=== PATIENT | female | born 1940 | race Caucasian/White ===

== ENCOUNTER 2017-01-03 13:54 | Inpatient (IN) | payer MEDICARE ==
[~2017-01-03] VITALS: Ht 149.9 cm; Wt 72.6 kg
[~2017-01-03 13:54] MED LIST: ACET325T51 PO; AMLO10TA5 PO; ASPI-973 PO; CEPH-512 PO; FENO160T14 PO; GEMF600T3 PO; GLIP10TA10 PO; HYDR50TA3 PO; INSU100I25 SQ; LEVO112T4 PO; LISI40TA PO; METF500T4 PO; METO25TA6 PO; NORT10CA PO; OMEP40CA36 PO; POTA10TA19 PO; PRAV20TA2 PO; PRE20 PO
[2017-01-03 13:59] VITALS: BP 159/82; PULSE 90; RESP 18; O2SAT 98
--- NOTE | 2017-01-03 15:12 | ED.REPORT ---
HPI-Neurologic Deficit Date of Service Jan 03, 2017 ED Provider: Frank Guillermo MD Pt is a 76 y/o female w/ a hx of IDDM, HTN, HLD, presenting to the ED with her daughter due to multiple neurological symptoms onset at the most 4 days ago. She has been experiencing facial droop, R leg weakness and mild numbness, difficulty walking, slurred speech, mild confusion. The onset of these symptoms is generally unclear but estimated about 2-4 days ago. The patient's chief complaint is difficulty walking secondary to RLE weakness. The daughter noticed the rest of the symptoms and brought her in today. She has no history of stroke. She takes aspirin daily but no anticoagulants. Nursing Notes Stated Complaint: DROOPY FACE,HARD TIME WALKING,SLURRING WORDS Chief Complaint: Neuro Symptoms/ Deficits Nursing Notes Reviewed: Yes Allergies: Coded Allergies: Penicillins (Verified Allergy, Severe, Anaphylaxis, 01/03/17) Heparin Analogues (Verified Adverse Reaction, Intermediate, BURNING VEINS FROM IV, SUBQ IS OK, 01/03/17) BURNING VEINS FROM IV HEPARIN--SUB Q HEPARIN OK levofloxacin (Verified Adverse Reaction, Intermediate, INSTANT MIGRAINE, NIGHTMARES, 01/03/17) niacin (Verified Adverse Reaction, Intermediate, FLUSHING, NAUSEA, DIARRHEA, 01/03/17) Scheduled Acetaminophen (Acetaminophen) 500 Mg Tablet 1,000 MG PO BID Amlodipine (Norvasc) 10 Mg Tablet 10 MG PO QAM Aspirin (Aspirin) 81 Mg Tablet 81 MG PO QAM Gemfibrozil (Gemfibrozil) 600 Mg Tablet 600 MG PO QAM Insulin Detemir (Levemir U100 Insulin Vial) 100 Unit/1 Ml Vial 18 UNIT SUBQ BID Levothyroxine (Levothyroxine) 112 Mcg Tablet 112 MCG PO QAM Lisinopril (Lisinopril) 40 Mg Tablet 60 MG PO QAM Metformin (Metformin) 500 Mg Tablet 500 MG PO EVERY OTHER DAY (PM) Metformin (Metformin) 500 Mg Tablet 500 MG PO QAM Metoprolol Tartrate (Metoprolol Tartrate) 25 Mg Tablet 12.5 MG PO BID Nortriptyline (Nortriptyline) 10 Mg Capsule 20 MG PO HS Omeprazole (Omeprazole) 20 Mg Capsule.dr 20 MG PO BIDWM Pravastatin (Pravastatin) 20 Mg Tablet 20 MG PO HS Triamterene/HCTZ 37.5-25 mg (Triamterene/HCTZ 37.5-25 mg) 1 Each Tablet 1 TABLET PO QAM General Time Seen by Provider: 15:15 Chief Complaint Other (multiple) Hx Obtained From: Patient Arrived By: Walk-in Sudden in Onset?: No Onset Occurred: 4 days ago Symptom Duration: Since onset Progression Since Onset: Constant Severity: Current: No pain currently Severity: Maximum: No pain Similar Sx Previous: No Risk Factors NIH Stroke Scale Level of Consciousness: Alert and responsive (0) Ask Month & Age: Both questions right (0) Open/Close Eyes/Hand Power Bender Operator: Performs both tasks (0) Horizontal EO Movements: None (0) Visual Barraza: No visual loss (0) Facial Palsy: Minor paralysis (1) (R) Right Arm Motor Drift (10s): Drift, not touch bed (1) Left Arm Motor Drift (10s): No drift 10 sec (0) Right Leg Motor Drift (5s): No drift 5 sec (0) Left Leg Motor Drift (5s): No drift 5 sec (0) Limb Ataxia FNF/Heel-Hazel: No ataxia (0) Sensation (Arms/Legs/Face): Pinprick less sharp (1) (RUE and RLE) Language Aphasia: No aphasia, normal (0) Dysarthria: Slurring intelligible (1) Extinction/Inattention: No exctinct/inattent (0) NIHSS Score: 4 Time NIHSS Performed: 15:15 Date NIHSS Performed: Jan 03, 2017 Past Medical History Past Medical History 1. Hypertension 2. Diabetes type 2. 3. Gastroesophageal reflux disease. 4. Hypothyroidism. 5. Dyslipidemia. 6. History of post ureteral stent complications with iliopsoas abscess and small-bowel obstruction, resolved with antibiotics. 7. History of hormone replacement therapy. 8. History of left-sided ureteral stones. 9. Arthritis of the neck, right shoulder, left shoulder and coccyx. 10. History of chronic calculus cholecystitis status post laparoscopic cholecystectomy and cholangiograms. 11. History of rectocele, vault prolapse, status post prior hysterectomy and prior anterior vaginal repair status post posterior Elevate system with posterior vaginal graft repair with apical vaginal repair and prophylactic mini-ARC urethropexy. Reports: Migraines Past Surgical History Hysterectomy. Cholecystectomy. Kidney stones removal, stenting. History of left knee surgery. Smoking History Never Smoker Social History Alcohol Use: Denies alcohol use Other Social History: Local resident Ambulatory Status Independent Review of Systems Neurologic: Reports: Confusion, Focal weakness, Numbness, Problem walking, Slurred speech, Denies: Change LOC, Headache, Unable to speak Complete sys rev & neg: except as marked. Physical Exam Initial Vital Signs Vital Signs (First) Date Time Temp Pulse Resp B/P Pulse Ox O2 Delivery O2 Flow Rate FiO2 01/03/17 13:59 36.5 90 18 159/82 98 Initial VS: Reviewed, Vital signs abnormal ENT: Mucous membranes moist, Conjunctiva normal, No scleral icterus Neck: Supple, Full range of motion Abdomen / GI: Soft, Non-tender Extremities: Vascular intact, No swelling Skin: Warm, Dry Psychiatric: Mood/affect normal, Behavior normal General/Constitutional: Awake, Alert, No acute distress, Cooperative, Not toxic appearing Head / Eyes: Atraumatic, Normocephalic, PERRL, EOMI Respiratory / Chest: Breath sounds NL, Breath sounds = bilat, No respiratory distress, No rales, No rhonchi, No wheezing Cardiovascular: Heart rate NL, Regular rhythm, Heart sounds NL, No murmurs Neurologic: Oriented X3, Cerebellar NL, Memory NL See NIH stroke scale = 4 Interpretation & Diagnostics Lab Results Interpretation Result Diagram: 01/03/17 1555 01/03/17 1555 Test 01/03/17 15:55 01/03/17 16:35 White Blood Count 5.4th/mm3 (3.8-10.1) Red Blood Count 4.14mil/mm3 (3.90-5.20) Hemoglobin 12.9g/dL (12.0-15.6) Hematocrit 36.1% (35.0-46.0) Mean Corpuscular Volume 87.2fL (81-100) Mean Corpuscular Hemoglobin 31.2pg (27.0-35.0) Mean Corpuscular Hemoglobin Concent 35.7% (32.0-37.0) Red Cell Distribution Width 12.6% (12.3-15.4) Platelet Count 320bil/L (150-400) Neutrophils (%) (Auto) 57.7% (40-74) Lymphocytes (%) (Auto) 31.0% (14-46) Monocytes (%) (Auto) 7.2% (4-12) Eosinophils (%) (Auto) 3.3% (0-5) Basophils (%) (Auto) 0.6% (0-3) Prothrombin Time 10.2sec (8.1-12.5) Prothromb Time International Ratio 0.95ratio Sodium Level 133mEq/L (134-144) Potassium Level 4.9mEq/L (3.5-5.2) Chloride Level 98mEq/L (97-108) Carbon Dioxide Level 17mmol/L (18-29) Blood Urea Nitrogen 39mg/dL (8-27) Creatinine 1.16mg/dL (0.57-1.00) Estimat Glomerular Filtration Rate 65mL/min (>59) Glucose Level 257mg/dL (60-99) Calcium Level 9.9mg/dL (8.5-10.1) Magnesium Level 1.5mg/dL (1.6-2.6) Total Bilirubin 0.2mg/dL (0.0-1.2) Aspartate Amino Transf (AST/SGOT) 37U/L (0-50) Alanine Aminotransferase (ALT/SGPT) 28U/L (0-32) Alkaline Phosphatase 77U/L (25-165) Troponin T < 0.010ug/L (0.0-0.011) Pro-B-Type Natriuretic Peptide 31.99pg/mL (0-738) Total Protein 7.7g/dL (6.4-8.4) Albumin 4.4g/dL (3.4-5.0) Hold Mccullough Top Tube Received (Received) Urine Color Yellow (YELLOW) Urine Appearance Hazy (CLEAR,HAZY) Urine pH 5.5 (5.0-8.0) Urine Specific [place] 1.020 (1.003-1.035) Urine Protein 100mg/dL (NEG,TRACE) Urine Glucose (UA) >1000mg/dL (NEGATIVE) Urine Ketones Negativemg/dL (NEGATIVE) Urine Occult Blood Negative (NEGATIVE) Urine Nitrite Negative (NEGATIVE) Urine Bilirubin Negative (NEGATIVE) Urine Urobilinogen Normalmg/dL (NORMAL) Urine Leukocyte Esterase Negative (NEGATIVE) Urine RBC 0-2/hpf (0-2) Urine WBC 0-5/hpf (0-5) Urine Epithelial Cells Many/hpf (NONE-MOD) Urine Crystals None seen (NONE SEEN) Urine Bacteria Few/hpf (NONE-FEW) Urine Hyaline Casts None/lpf (NONE) Urine Granular Casts None seen (NONE SEEN) Urine Waxy Casts None seen (NONE SEEN) Urine Red Blood Cell Casts None seen (NONE SEEN) Urine White Blood Cell Casts None seen (NONE SEEN) Urine Mucus None seen (None Seen) Urine Trichomonas None seen (NONE SEEN) Urine Yeast None (NONE SEEN) Urinalysis Comment None Urine Culture Reflexed Not indicated Hold Urine Received (Received) ECG Interpretation Time: 15:30 Interpreted by: ED physician Normal ECG Interpretation: Normal ECG w/ rate of... (82), Normal rate, Normal sinus rhythm, No acute ischemic changes, Normal QRS, Normal axis, Normal intervals, Adequate tracing X-Ray Chest Interpretation Chest Xray Interpretation: IMPRESSION: A source of acute shortness of breath is not found. Dictated by: Lamont Vera M.D. on 01/03/2017 at 16:52 Approved by: Lamont Vera M.D. on 01/03/2017 at 16:53 View: Portable, 1 view Interpretation / Wet Read by: Interpret - Radiologist CT Head Interpretation IMPRESSION: Mild microvascular atherosclerotic change in the deep white matter of each hemisphere, as was previously the case in 2015. No definite acute disease is found. Dictated by: Lamont Vera M.D. on 01/03/2017 at 16:06 Approved by: Lamont Vera M.D. on 01/03/2017 at 16:07 Study: Head CT no contrast Interpretation / Wet Read by: Interpret - Radiologist Re-Eval/Medical Decision Med Decision/Clinical Course 76-year-old female with 2-4 days of right facial droop right upper extremity weakness recollection of any weakness and dysarthria. While out of the TPA window. CT brain no acute pathology. On exam she does have right lower facial droop, dysarthria, right upper extremity drift decreased sensation right upper and lower extremity. Labs are unremarkable. Patient likely had a CVA. Will be admitted for stroke workup. Source of Hx: Old records Re-Evaluation/Progress #1: Time of Eval: 15:21 Re-Evaluation/Progress Note: Pt rechecked. Informed pt of need for admission. Pt understands and agrees with plan for admission. All questions addressed. Discussed CODE STATUS: She is DNR Re-Evaluation/Progress #2: Time of Eval: 17:56 Re-Evaluation/Progress Note: Her daughter convinced her to change code status to full code. Consultation : Referral / Consult Name: Roel Berumen MD Consulted With: Hospitalist Call Returned at: 17:56 Bloom Conveyor Operator: Will see patient, Agrees with eval, Agrees with plan, Accepts admit Counseled Regarding: Diagnosis, Lab results, Need for admission Discharge & Departure Impression: Primary Impression: CVA (cerebral vascular accident) CVA mechanism: unspecified Qualified Code: I63.9 - Cerebral infarction, unspecified Disposition: ADMITTED TO HOSPITAL Discharge Condition All VS Reviewed: Yes Condition: Stable Referrals: Faustino French MD (PCP) Scribe Attestation Portions of this note were transcribed by Jayant Telles. I, Dr. Guillermo personally performed the history, physical exam and medical decision-making; I reviewed and confirmed the accuracy of the information in the transcribed note. copies to: Faustino French MD, Ben M MD Jan 03, 2017 15:11 JAYANT TELLES Jan 03, 2017 15:21
[2017-01-03] MEDS ORDERED: ACET-171 PO (16:01)
[2017-01-03] MEDS ORDERED: OMEP20CA11 PO (16:07)
[2017-01-03] MEDS ORDERED: INSU100V4 SUBQ (16:07)
[2017-01-03] MEDS ORDERED: TRIA1TAB3 PO (16:07)
--- NOTE | 2017-01-03 16:09 | DRSVH ---
PROCEDURE: CT BRAIN WITHOUT CONTRAST ([id number]) INDICATIONS: New neuro deficits. TECHNIQUE: Noncontrast 4.5 mm thick angled axial sections acquired from the foramen magnum to the vertex, with c oronal reformats. COMPARISON: [facility], CT, CT BRAIN WO CON, 04/22/2015, 3:55. FINDINGS: Image quality: Excellent. CSF spaces: Basal cisterns are patent. No extra-axial fluid collections. The ventricles are symmet lavinia in size and shape. Brain: No intracranial bleeds or masses. There is cerebral volume loss for age, with resultant vent ricular and sulcal prominence. There are periventricular and deep white matter chronic small vessel ischemic changes. There is intracranial internal carotid artery atherosclerosis. Skull and face: Calvarium and visualized facial bones appear intact, without suspicious lesions. Sinuses: Visualized sinuses and mastoids are clear. IMPRESSION: Mild microvascular atherosclerotic change in the deep white matter of each hemisphere, a s was previously the case in 2014. No definite acute disease is found. Dictated by: Lamont Vera M.D. on 01/03/2017 at 16:06 Approved by: Lamont Vera M.D. on 01/03/2017 at 16:07
[2017-01-03 16:16] LABS: BASOPHILS % (AUTO) 0.6 % (0-3); EOSINOPHILS % (AUTO) 3.3 % (0-5); MONOCYTES % (AUTO) 7.2 % (4-12); Mean Corpuscular Hemoglobin 31.2 pg (27.0-35.0); Mean Corpuscular Volume 87.2 fL (81-100); NEUTROPHILS % (AUTO) 57.7 % (40-74); Platelet Count 320 bil/L (150-400)
[2017-01-03 16:33] LABS: INR 0.95 ratio
[2017-01-03 16:42] LABS: TROPONIN T < 0.010 ug/L (0.0-0.011)
[2017-01-03 16:53] LABS: Magnesium 1.5 mg/dL (1.6-2.6)
--- NOTE | 2017-01-03 16:55 | DRSVH ---
PROCEDURE: X-RAY CHEST ONE VIEW, PORTABLE ([id number]) INDICATIONS: sob TECHNIQUE: One view of the chest was acquired. COMPARISON: [facility], CR, XR CHEST 1VW (PORTABLE), 03/02/2015, 5:18. FINDINGS: Surgical changes and devices: None. Lungs and pleura: No pleural effusions or pneumothorax. Lungs are clear. Mediastinum: Mediastinal contours appear normal. Heart size is normal. Bones and chest wall: No suspicious bony lesions. Overlying soft tissues appear unremarkable. IMPRESSION: A source of acute shortness of breath is not found. Dictated by: Lamont Vera M.D. on 01/03/2017 at 16:52 Approved by: Lamont Vera M.D. on 01/03/2017 at 16:53
[2017-01-03] MEDS ORDERED: Ondansetron 2 mg/mL 2 mL Inj IVPUSH PRN (18:00)
[2017-01-03] MEDS ORDERED: Alum-Mag Hydrox-Simeth 30 mL Suspension PO PRN (18:00)
[2017-01-03 18:34] VITALS: BP 159/69; PULSE 84; RESP 22; O2SAT 97
--- NOTE | 2017-01-03 18:48 | PCM.HPMED ---
Subjective Date of Service Jan 03, 2017 Primary Provider: Admitting Physician: Roel Berumen MD Primary Care Physician: Faustino French MD Attending Physician: Roel Berumen MD Admit Status: From the Emergency Department, Admit to Blue Team Chief Complaint: RLE Weakness History of Present Illness: 68-year-old pleasant female with a history of diabetes on insulin, hypertension , hyperlipidemia, taoist arteritis presenting with 2-4 days of right lower extremity weakness, slurred speech, right facial droop. Patient lives alone and noticed that her right lower extremity had gotten weaker. Patient's daughter says that she first saw her today and immediately noticed the right facial droop and slurred speech. Patient says that since arriving in ED the right lower extremity has gotten somewhat stronger however still has a right facial droop. Patient denies any history of stroke. Patient does take 81 mg of aspirin daily. Patient says that she was at her primary care physician's office Thursday and her lisinopril was increased from 40-60 mg. She says that her symptoms started shortly after this but is not sure if it is related. Is not any anticoagulation. Patient does not have a history of atrial fibrillation. Denies chest pain shortness of breath. Denies any fever chills. Denies any recent falls. Review of Systems: 12 point review of symptoms negative except for that in history of present illness Allergies Coded Allergies: Penicillins (Verified Allergy, Severe, Anaphylaxis, 01/03/17) Heparin Analogues (Verified Adverse Reaction, Intermediate, BURNING VEINS FROM IV, SUBQ IS OK, 01/03/17) BURNING VEINS FROM IV HEPARIN--SUB Q HEPARIN OK levofloxacin (Verified Adverse Reaction, Intermediate, INSTANT MIGRAINE, NIGHTMARES, 01/03/17) niacin (Verified Adverse Reaction, Intermediate, FLUSHING, NAUSEA, DIARRHEA, 01/03/17) Home Medications Scheduled Acetaminophen (Acetaminophen) 500 Mg Tablet 1,000 MG PO BID Amlodipine (Norvasc) 10 Mg Tablet 10 MG PO QAM Aspirin (Aspirin) 81 Mg Tablet 81 MG PO QAM Gemfibrozil (Gemfibrozil) 600 Mg Tablet 600 MG PO QAM Glipizide (Glipizide) 10 Mg Tablet 10 MG PO BIDWM Insulin Detemir (Levemir U100 Insulin Vial) 100 Unit/1 Ml Vial 18 UNIT SUBQ BID Levothyroxine (Levothyroxine) 112 Mcg Tablet 112 MCG PO QAM Lisinopril (Lisinopril) 40 Mg Tablet 60 MG PO QAM Metformin (Metformin) 500 Mg Tablet 500 MG PO EVERY OTHER DAY (PM) Metformin (Metformin) 500 Mg Tablet 500 MG PO QAM Metoprolol Tartrate (Metoprolol Tartrate) 25 Mg Tablet 12.5 MG PO BID Nortriptyline (Nortriptyline) 10 Mg Capsule 20 MG PO HS Omeprazole (Omeprazole) 20 Mg Capsule.dr 20 MG PO BIDWM Pravastatin (Pravastatin) 20 Mg Tablet 20 MG PO HS Triamterene/HCTZ 37.5-25 mg (Triamterene/HCTZ 37.5-25 mg) 1 Each Tablet 1 TABLET PO QAM PMH 1. Hypertension 2. Diabetes type 2. 3. Gastroesophageal reflux disease. 4. Hypothyroidism. 5. Dyslipidemia. 6. History of post ureteral stent complications with iliopsoas abscess and small-bowel obstruction, resolved with antibiotics. 7. History of hormone replacement therapy. 8. History of left-sided ureteral stones. 9. Arthritis of the neck, right shoulder, left shoulder and coccyx. 10. History of chronic calculus cholecystitis status post laparoscopic cholecystectomy and cholangiograms. 11. History of rectocele, vault prolapse, status post prior hysterectomy and prior anterior vaginal repair status post posterior Elevate system with posterior vaginal graft repair with apical vaginal repair and prophylactic mini-ARC urethropexy. Reports: Migraines Surgical History Hysterectomy. Cholecystectomy. Kidney stones removal, stenting. History of left knee surgery. Social History Hx Alcohol Use: No Hx Substance Use: No Hx Tobacco Use: No Smoking Status: Never Smoker Exam Vital Signs Vital Sign - Last Date Time Temp Pulse Resp B/P Pulse Ox O2 Delivery O2 Flow Rate FiO2 01/03/17 18:34 84 22 159/69 97 Room Air 01/03/17 13:59 36.5 Exam Gen: NAD, AOx4, HEENT: NCAT, PERRLA, EOMI, MMM, sclera anicteric. +R Facial Droop. Neck: Soft, supple, no thyromegaly/JVD/LAD. Resp: CTAB, no R/R/W. CV: S1 S2, RRR, No M/R/G Abd: Soft, (+) BS, NT/ND, no guarding/rebound/organomegaly. Ext: +PP, No edema. Skin: warm/dry/intact Neuro/Psych: Cooperative, appr mood/affect. CN II-XII grossly intact, except R Facial Droop. RLE 3.5/5 strength. RUE- 5/5. No sensory deficits. R Finger-to- Nose- slower. No DDK. Could not assess gait. Lab and Diagnostics Result Diagram: 01/03/17 1555 01/03/17 1555 X-Rays, CTs and MRIs X-Ray Chest Interpretation Chest Xray Interpretation: IMPRESSION: A source of acute shortness of breath is not found. Dictated by: Lamont Vera M.D. on 01/03/2017 at 16:52 Approved by: Lamont Vera M.D. on 01/03/2017 at 16:53 View: Portable, 1 view Interpretation / Wet Read by: Interpret - Radiologist CT Head Interpretation IMPRESSION: Mild microvascular atherosclerotic change in the deep white matter of each hemisphere, as was previously the case in 2015. No definite acute disease is found. Dictated by: Lamont Vera M.D. on 01/03/2017 at 16:06 Approved by: Lamont Vera M.D. on 01/03/2017 at 16:07 Study: Head CT no contrast Interpretation / Wet Read by: Interpret - Radiologist 12-lead ECG ECG Interpretation Time: 15:30 Interpreted by: ED physician Normal ECG Interpretation: Normal ECG w/ rate of... (82), Normal rate, Normal sinus rhythm, No acute ischemic changes, Normal QRS, Normal axis, Normal intervals, Adequate tracing Assessment & Plan 68-year-old pleasant female with a history of diabetes on insulin, hypertension , hyperlipidemia, taoist arteritis presenting with 2-4 days of right lower extremity weakness, slurred speech, right facial droop. RLE Weakness, poa, acute- given presentation, Stroke rule out. CT Head- was negative for acute abn. NIH- 4. - Stroke pathway - cardiac monitoring - MRI Brain in AM. - Echo, Carotid US. - Allow for permissive HTN, hold Lisinopril, Triamterene/HCTZ. Continue Metoprolol. - Continue Statin. - BUSINESS ANALYST MANAGER eval. PT/OT Eval. - Pt given Aspirin in ED per rectum, continue 81mg qd. Consider change to plavix. ANAHY- acute, poa. May be prerenal. Encourage PO intake if pass swallow. Pt had here Lisinopril dose inc from 40->60mg which may have contributed. - Holding acei, consider starting at lower dose when resume. Diabetes- chronic, stable. - substitue Levemir for Lantus. - Hold Metformin, continue Glipizide. Hypothyroidism- chronic, stable. c/w Sythroid GERD- chronic, stable. c/w PPI HLD- chronic, stable. - c/w statin, Gemfibrozil. taoist arteritis, chronic, stable- not currently on prednisone. Code- Changed to Full Code per ED team, and confirmed by both patient and daughter. Dvt ppx- scd. Allergy to Heparin analogues. Status- Patient is admitted under observation status expected length of stay less than 2 midnights due to severity of presenting symptoms, risk of adverse events, and complexity of treatment plan. Pain Evaluation: Adequate Pain Control GI Prophylaxis: Proton Pump Inhibitor VTE Mechanical Devices: Intermittant Pneumatic CD Resuscitation Status: CPR: Attempt Resuscitation Time spent > 60 mins Roel Berumen MD Jan 03, 2017 18:48
[2017-01-03] MEDS ORDERED: Glucose 40% Oral Gel 15 Gm Tube PO PRN (19:05)
[2017-01-03] MEDS ORDERED: Polyethylene Glycol (PEG) 17 Gm Powder PO PRN (19:10)
[2017-01-03] MEDS ORDERED: Labetalol 5 mg/mL 20 mL Inj IVPUSH PRN (19:15)
[2017-01-03] MEDS ORDERED: Magnesium Sulf 2 Gm/50mL Water 2 GM in IV Premix 1 EACH IV ONE (19:15)
[2017-01-03] MEDS ORDERED: Dextrose 10% 250 ML IV PRN (19:20)
[2017-01-03 19:53] VITALS: BP 144/57; PULSE 81; RESP 16; O2SAT 96
[2017-01-03 19:57] LABS: APPEARANCE,URINE HAZY (CLEAR,HAZY); COLOR,URINE YELLOW (YELLOW); OCCULT BLOOD,URINE NEGATIVE (NEGATIVE); PH,URINE 5.5 (5.0-8.0); UROBILINOGEN,URINE NORMAL (NORMAL)
[2017-01-03 20:39] VITALS: BP 147/74; PULSE 77; RESP 18; O2SAT 96
[2017-01-03] MEDS: 0.9% Sodium Chloride 1,000 ML IV SCH (20:44)
[2017-01-03] MEDS: Insulin LISPRO 300 Unit/3 mL Inj SUBQ SCH (20:45)
[2017-01-03] MEDS: Insulin GLARgine 100 Unit/mL Syringe SUBQ SCH (21:36)
--- NOTE | 2017-01-03 21:56 | NUR ---
Admission Admit to room 3023 From ER with family at bedside. A&O, SL, RA. Upon arrival tele applied and IVF with mag initiated. Oriented to room and call light. Admission assessments and med rec completed in ER by admission RN. Raghu board updated with plan of care and pt comfortable with plan of care at this time.
[2017-01-04] VITALS (9 sets, daily range): BP systolic 124–163; BP diastolic 71–81; PULSE 76–86; RESP 18; O2SAT 96–99
[2017-01-04] MEDS: Insulin LISPRO 300 Unit/3 mL Inj SUBQ SCH ×4 (08:00→22:00)
[2017-01-04] MEDS: Insulin GLARgine 100 Unit/mL Syringe SUBQ SCH ×2 (08:36→22:18)
--- NOTE | 2017-01-04 09:49 | NUR ---
Evaluation completed. Please go to "Notes" then click on "Assessments and Notes" (bottom left corner of screen). Then select appropriate discipline tab on top of screen.
[2017-01-04] MEDS ORDERED: LORazepam 0.5 mg Tablet PO ONE (10:25)
[2017-01-04] MEDS: 0.9% Sodium Chloride 1,000 ML IV SCH (10:30)
--- NOTE | 2017-01-04 12:51 | NUR ---
ANALY explained and signed. Copy of ANALY and Medicare self administered medication information given to pt. Multiple family members at bedside during explanation of ANALY
--- NOTE | 2017-01-04 13:21 | NUR ---
Evaluation completed. Please go to "Notes" then click on "Assessments and Notes" (bottom left corner of screen). Then select appropriate discipline tab on top of screen.
--- NOTE | 2017-01-04 13:52 | DRSVH ---
PROCEDURE: MRA ANGIOGRAM HEAD WITHOUT CONTRAST ([id number]) INDICATIONS: Right lower extremity weakness, slurred speech, and right facial droop. TECHNIQUE: Noncontrast axial 3-D [id number] MR angiogram, with 3-dimensional maximum intensity projection (M IP) reformats of the internal carotid arteries and posterior circulation then performed. COMPARISON: [facility], CT, CT BRAIN WO CON, 01/03/2017, 15:35. [facility], CT, CT BRAIN WO CON, 04/22/2015, 3:55. FINDINGS: Image quality: Excellent. Anterior circulation: Intracranial internal carotid arteries demonstrate normal size and appear franco nt. The flow within the paired anterior cerebral arteries is patent bilaterally. The flow within th e middle cerebral arteries is patent bilaterally. The anterior communicating artery is patent. No h igh-grade stenosis or occlusion. Posterior circulation: The distal right vertebral artery is diminutive in caliber with segments of n onvisualized flow related enhancement suggesting high grade stenoses or occlusion. The distal left v ertebral artery appears patent and supplies the basilar artery which appears patent along its course. The flow within the posterior cerebral arteries is patent bilaterally. There is persistent c irculation on the left, with the left posterior cirrhotic supplied by the right posterior communicati ng artery. 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 IMPRESSION: 1. No high-grade stenosis or occlusion of the central intracranial arteries. 2. Nonvisualized segments of the distal right vertebral artery suggesting high-grade segmental steno ses or occlusion. Recommend correlation with a contrast enhanced MR angiogram if clinically feasible . 3. 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 Dictated by: Arcadio James M.D. on 01/04/2017 at 12:39 Approved by: Arcadio James M.D. on 01/04/2017 at 12:50
--- NOTE | 2017-01-04 16:20 | PCM.PNMED ---
Subjective Date of Service Jan 04, 2017 Subjective Pt says RLE still weak when working with PT. No overnight events. Exam Vital Signs Vital Sign - Last Date Time Temp Pulse Resp B/P Pulse Ox O2 Delivery O2 Flow Rate FiO2 01/04/17 14:11 36.9 83 18 124/71 96 Room Air Intake and Output 01/03/17 01/03/17 01/04/17 Cumulative From/Thru 15:00 23:00 07:00 01/03/17 13:59 - 01/04/17 06:28 Intake Total 1080 ml 1080 ml Output Total 1750 ml 1750 ml Balance -670 ml -670 ml Intake Oral 400 ml 400 ml IV Total 680 ml 680 ml Output Urine Total 1750 ml 1750 ml # Bowel Movements 0 0 Exam Gen: NAD, AOx4, HEENT: NCAT, PERRLA, EOMI, MMM, sclera anicteric. +R Facial Droop- improved. Neck: Soft, supple, no thyromegaly/JVD/LAD. Resp: CTAB, no R/R/W. CV: S1 S2, RRR, No M/R/G Abd: Soft, (+) BS, NT/ND, no guarding/rebound/organomegaly. Ext: +PP, No edema. Skin: warm/dry/intact Neuro/Psych: Cooperative, appr mood/affect. CN II-XII grossly intact, except R Facial Droop. RLE 4.5/5 strength. RUE- 5/5. No sensory deficits. No DDK. IVs and Medications Medications Reviewed: Medications were reviewed in detail Lab and Diagnostics Result Diagram: 01/03/17 1555 01/04/17 0525 X-Rays, CTs and MRIs 01/04- MRA HEAD wo cont- 1. No high-grade stenosis or occlusion of the central intracranial arteries. 2. Nonvisualized segments of the distal right vertebral artery suggesting high- grade segmental stenoses or occlusion. Recommend correlation with a contrast enhanced MR angiogram if clinically feasible. 3. 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 X-Ray Chest Interpretation Chest Xray Interpretation: IMPRESSION: A source of acute shortness of breath is not found. Dictated by: Lamont Vera M.D. on 01/03/2017 at 16:52 Approved by: Lamont Vera M.D. on 01/03/2017 at 16:53 View: Portable, 1 view Interpretation / Wet Read by: Interpret - Radiologist CT Head Interpretation IMPRESSION: Mild microvascular atherosclerotic change in the deep white matter of each hemisphere, as was previously the case in 2015. No definite acute disease is found. Dictated by: Lamont Vera M.D. on 01/03/2017 at 16:06 Approved by: Lamont Vera M.D. on 01/03/2017 at 16:07 Study: Head CT no contrast Interpretation / Wet Read by: Interpret - Radiologist 12-lead ECG ECG Interpretation Time: 15:30 Interpreted by: ED physician Normal ECG Interpretation: Normal ECG w/ rate of... (82), Normal rate, Normal sinus rhythm, No acute ischemic changes, Normal QRS, Normal axis, Normal intervals, Adequate tracing Assessment & Plan 68-year-old pleasant female with a history of diabetes on insulin, hypertension , hyperlipidemia, advent arteritis presenting with 2-4 days of right lower extremity weakness, slurred speech, right facial droop. RLE Weakness, poa, acute- given presentation, Stroke rule out. CT Head- was negative for acute abn. NIH- 4. - Stroke pathway, cardiac monitoring - 01/04- MRA HEAD wo cont- No occlusion of central intracranial arteries. Possible distal right vertebral artery suggesting high-grade segmental stenoses or occlusion. 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 - MRI Brain, MRA Head/Neck with Contrast pending. - Echo, Carotid US pending. - Allow for permissive HTN, hold Lisinopril, Triamterene/HCTZ. Continue Metoprolol. - Continue Statin, Aspirin. - PT- Rec Home PT. ANAHY- poa, improved. May be prerenal. Encourage PO intake. Pt had here Lisinopril dose inc from 40->60mg which may have contributed. - Holding acei, consider starting at lower dose when resume. Diabetes- chronic, stable. - substitue Levemir for Lantus. - Hold Metformin, continue Glipizide. Hypothyroidism- chronic, stable. c/w Sythroid GERD- chronic, stable. c/w PPI HLD- chronic, stable. - c/w statin, Gemfibrozil. [place] arteritis, chronic, stable- not currently on prednisone. Code- Changed to Full Code per ED team, and confirmed by both patient and daughter. Dvt ppx- scd. Allergy to Heparin analogues. Status- Patient is admitted under observation status expected length of stay less than 2 midnights due to severity of presenting symptoms, risk of adverse events, and complexity of treatment plan. GI Prophylaxis: Proton Pump Inhibitor VTE Mechanical Devices: Intermittant Pneumatic CD Resuscitation Status: CPR: Attempt Resuscitation Roel Berumen MD Jan 04, 2017 16:20 Roel Berumen MD Jan 04, 2017 16:20
[2017-01-04] MEDS ORDERED: LORazepam 0.5 mg Tablet PO PRN (17:05)
--- NOTE | 2017-01-04 18:03 | NUR ---
Shift note Uneventful shift no c/o pain. Pt continued to have moderate right side facial droop, no other neuro def. Pt ambulates well with FWW to restroom. Has tolerated PO RX, fluid and food. Numerous family members at bedside; all have been extremely nice.
--- NOTE | 2017-01-04 19:46 | DRSVH ---
PROCEDURE: MRI BRAIN WITH CONTRAST INDICATIONS: Right lower extremity weakness. TECHNIQUE: Axial diffusion and ADC, axial T2, axial FLAIR, sagittal flair, axial T1, coronal T2, axia l SWI, and axial and coronal VIBE post contrast. COMPARISON: [facility], MR, MR ANGIO HEAD WO CON, 01/04/2017, 11:17. [facility], MR, MR ANGIO NECK W CON, 01/04/2017, 17:35. BRAIN: CSF spaces: There is lefi-lm-rogzlfnw cerebral volume loss with prominence of the ventricles and sulc i. Basal cisterns are patent. No extra-axial fluid collections. Brain: Diffusion weighted images demonstrate a left paracentral region of restricted diffusion in the addy with corresponding mild T2 hyperintensity consistent with an acute infarct. There is no eviden ce of associated hemorrhagic transformation. No intracranial hemorrhage, mass, or mass effect. Ther e are periventricular and subcortical foci of white matter T2 hyperintensity consistent with mild chr onic small vessel ischemic changes. There is a small linear filling defect in the distal right verte bral artery at its junction with the basilar artery likely representing near- occlusive thrombus. Th ere is also partial filling defects within the proximal basilar artery suggestive of partial thrombus . No abnormal intracranial enhancement. Skull and face: Calvarial marrow signal is normal. Orbits appear normal. Sinuses: Mild mucosal thickening is noted in the ethmoid and maxillary sinuses. Mastoid air cells ar e clear. IMPRESSION: 1. 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 2. Mild chronic white matter small vessel ischemic changes and mild to moderate cerebral volume loss . 3. Small filling defect at the junction of the right vertebral artery with the basilar artery as wel l as suggestion of filling defect in the proximal basilar artery. Findings likely represent foci of thrombus and correspond to focal stenosis in the distal right vertebral artery on the concurrent giancarlo ogram studies. Dictated by: Arcadio James M.D. on 01/04/2017 at 18:31 Approved by: Arcadio James M.D. on 01/04/2017 at 18:45
--- NOTE | 2017-01-04 19:57 | DRSVH ---
PROCEDURE: MRA ANGIOGRAM NECK WITH CONTRAST ([id number]) INDICATIONS: CVA rule out TECHNIQUE: Axial and sagittal TruFISP through the neck. Coronal dynamic MRA after the administration of contras t in the arterial and venous phases, with rotating 3-dimensional maximum intensity projection (MIP) r eformats constructed from subtraction images. COMPARISON: [facility], MR, MR BRAIN W CON, 01/04/2017, 17:35. [facility], M R, MR ANGIO HEAD WO CON, 01/04/2017, 11:17. FINDINGS: Image quality: Excellent. Carotids: Great vessels demonstrate conventional anatomy as they arise from the aortic arch. The or igins of the common carotid arteries appear patent. The calibers and courses of both common carotid arteries are normal. There is minimal narrowing of less than 50% in the left carotid bulb. The righ t carotid bulb is widely patent. The internal carotid arteries demonstrate normal course and caliber . Posterior circulation: The origins of the vertebral arteries appear patent. There is a segment of t he distal right vertebral artery which is diminutive in caliber with a focus of high grade stenosis o r near-occlusion at the junction with the basilar artery. The left vertebral artery appears patent a long its course. The basilar artery appears grossly patent. Miscellaneous: Subclavian arteries appear patent. Pre-contrast images through the neck show no soft tissue abnormalities. IMPRESSION: 1. Focal high-grade stenosis at the junction of the right vertebral artery and basilar artery. 2. Segmental decreased caliber of the distal right vertebral artery proximal to junction raises the possibility of dissection. Given the acute left addy infarct on the concurrent brain MRI, recommend further evaluation with CT angiogram if clinically indicated. The findings were the discussed with Dr. Oscar on 01/04/17 at 6:45 PM. The estimate of stenosis included in the report of the imaging study was calculated using the NASCET method Dictated by: Arcadio James M.D. on 01/04/2017 at 18:45 Approved by: Arcadio James M.D. on 01/04/2017 at 18:55
--- NOTE | 2017-01-04 21:59 | DRSVH ---
PROCEDURE: CT ANGIO HEAD AND NECK (P) INDICATIONS: dissection? TECHNIQUE: Pre-contrast 4.5 mm thick sections acquired from the foramen magnum to the vertex. After the adminis tration of intravenous contrast, 1 mm thick sections acquired from the aortic arch through the [place]. Post-contrast 4.5 mm thick sections then re-acquired from the foramen magnum to the vert ex. 3-dimensional qravijw-yyeknseqe-axyrdwcxda (MIP) and/or volume rendering reformats were acquired of the central intracranial vasculature and neck separately. For radiation dose reduction, the foll owing was used: automated exposure control, adjustment of mA and/or kV according to patient size. COMPARISON: [facility], CT, CT BRAIN WO CON, 01/03/2017, 15:35. [facility], MR, MR BRAIN W CON, 01/04/2017, 17:35. [facility], MR, STROKE PROTOCOL (PNL), 05/24/2007, 6:34. [facility], MR, MR ANGIO NECK W CON, 01/04/2017, 17:35. FINDINGS: Image quality: Excellent. BRAIN: CSF spaces: Ventricles are normal in size and shape. Basal cisterns are patent. No extra-axial flu id collections. Brain: No midline shift. No intracranial bleeds or masses. Deep and periventricular white matter ch anges are present likely associated with chronic microvascular ischemic change. A 5 mm diameter hypod ense region is present within the left addy which corresponds with the region of increased restricted diffusion on the MRI from earlier today and subacute pontine infarct. Hernandes-white matter interface ap pears intact. Skull and face: Calvarium and facial bones appear intact, without suspicious lesions. Orbits appear normal. Sinuses: Sinuses and mastoids are clear. HEAD CT ANGIOGRAPHY: Anterior circulation: Intracranial internal carotid arteries demonstrate normal course. There is mod erate stenosis of the cavernous portions of the bilateral internal carotid artery secondary to dense atheromatous calcifications. The flow within the paired anterior cerebral arteries is normal and symm etric. The flow within the middle cerebral arteries is normal and symmetric. The anterior communica ting artery is seen. No aneurysms are seen. Posterior circulation: There is a smooth tapered narrowing of the distal aspect of the right vertebra l artery, which is occluded just central to the expected point of basilar artery formation. This is a new finding when compared with the MRI of the brain dated 05/24/07. The basilar artery demonstrates n ormal course and caliber. NECK CT ANGIOGRAPHY: Carotid system: The great vessels demonstrate a conventional anatomy as they arise from the aortic a rch. The origins of the common carotid arteries appear patent. The common carotid arteries demonstr ate normal caliber and courses. The bifurcation regions are both widely patent. The internal caroti d arteries demonstrate normal calibers and courses. Posterior circulation: The origins of the vertebral arteries both appear widely patent. The more mejia perior extracranial portions of both vertebral arteries also demonstrate normal courses and calibers. They join to form a normal appearing basilar artery. Soft tissues: Visualized neck soft tissues demonstrate no suspicious abnormalities. Bones: No suspicious bony lesions. Visualized cervical spine appears normally aligned. IMPRESSION: 1. Smooth tapered narrowing and occlusion of the distal right vertebral artery. This is a new finding when compared with the prior MRI of this region from 2007 where the right vertebral artery was the d ominant artery forming the basilar artery. Given the change in vessel size from 2007, the smooth tape red narrowing to occlusion, and the recent pontine infarct, acute vertebral artery dissection is susp ected. These findings were discussed with Dr. Oscar at 9:53 PM on 01/04/17. 2. Moderate stenosis of the cavernous portions of the bilateral internal carotid artery secondary to atheromatous calcifications. 3. No other stenosis, occlusion, or aneurysm. Dictated by: Jany Bach M.D. on 01/04/2017 at 21:34 Approved by: Jany Bach M.D. on 01/04/2017 at 21:57
[2017-01-05] VITALS (7 sets, daily range): BP systolic 138–150; BP diastolic 75–82; PULSE 80–91; RESP 16–18; O2SAT 95–96
--- NOTE | 2017-01-05 02:56 | NUR ---
Neuro Patient is A&OX3. Patient has partial rt side facial droop. Up independent to bathroom. Stand by assist w/FWW. Q4 neuro checks. Patient resting quietly in room. Care continues.
[2017-01-05] MEDS: 0.9% Sodium Chloride 1,000 ML IV SCH ×2 (03:22→18:00)
[2017-01-05] MEDS: Insulin LISPRO 300 Unit/3 mL Inj SUBQ SCH ×4 (07:59→20:57)
[2017-01-05] MEDS: Insulin GLARgine 100 Unit/mL Syringe SUBQ SCH ×2 (08:00→20:57)
--- NOTE | 2017-01-05 13:08 | NUR ---
Case Management: [facility] delivered and explained. Signed original placed in chart. Copy left at bedside. Rose Galvan RN
--- NOTE | 2017-01-05 14:57 | PCM.PNMED ---
Subjective Date of Service Jan 05, 2017 Subjective Pt has had no worsening of neuro symptoms. Still c/o of R facial droop and RLE weakness w/ ambulation. Exam Vital Signs Vital Sign - Last Date Time Temp Pulse Resp B/P Pulse Ox O2 Delivery O2 Flow Rate FiO2 01/05/17 11:11 80 01/05/17 09:18 36.4 18 142/77 95 Room Air Intake and Output 01/04/17 01/04/17 01/05/17 Cumulative From/Thru 15:00 23:00 07:00 01/03/17 13:59 - 01/05/17 06:09 Intake Total 1531 ml 753 ml 3364 ml Output Total 350 ml 2100 ml Balance 1181 ml 753 ml 1264 ml Intake Oral 800 ml 1200 ml IV Total 731 ml 753 ml 2164 ml Output Urine Total 350 ml 2100 ml # Bowel Movements 0 0 Exam Gen: NAD, AOx4, HEENT: NCAT, PERRLA, EOMI, MMM, sclera anicteric. +R Facial Droop. Neck: Soft, supple, no thyromegaly/JVD/LAD. Resp: CTAB, no R/R/W. CV: S1 S2, RRR, No M/R/G Abd: Soft, (+) BS, NT/ND, no guarding/rebound/organomegaly. Ext: +PP, No edema. Skin: warm/dry/intact Neuro/Psych: Cooperative, appr mood/affect. CN II-XII grossly intact, except R Facial Droop. RLE 45/5 strength. RUE- 5/5. No sensory deficits. No DDK. IVs and Medications Medications Reviewed: Medications were reviewed in detail Lab and Diagnostics Result Diagram: 01/03/17 1555 01/04/17 0525 X-Rays, CTs and MRIs 01/04- MRA HEAD wo cont- 1. No high-grade stenosis or occlusion of the central intracranial arteries. 2. Nonvisualized segments of the distal right vertebral artery suggesting high- grade segmental stenoses or occlusion. Recommend correlation with a contrast enhanced MR angiogram if clinically feasible. 3. 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 X-Ray Chest Interpretation Chest Xray Interpretation: IMPRESSION: A source of acute shortness of breath is not found. Dictated by: Lamont Vera M.D. on 01/03/2017 at 16:52 Approved by: Lamont Vera M.D. on 01/03/2017 at 16:53 View: Portable, 1 view Interpretation / Wet Read by: Interpret - Radiologist CT Head Interpretation IMPRESSION: Mild microvascular atherosclerotic change in the deep white matter of each hemisphere, as was previously the case in 2015. No definite acute disease is found. Dictated by: Lamont Vera M.D. on 01/03/2017 at 16:06 Approved by: Lamont Vera M.D. on 01/03/2017 at 16:07 Study: Head CT no contrast Interpretation / Wet Read by: Interpret - Radiologist 12-lead ECG ECG Interpretation Time: 15:30 Interpreted by: ED physician Normal ECG Interpretation: Normal ECG w/ rate of... 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 Pt +RLE Weakness on exam. -01/04- MRA HEAD wo cont- No occlusion of central intracranial arteries. Possible distal right vertebral artery suggesting high-grade segmental stenoses or occlusion. 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 - Stroke pathway, cardiac monitoring - Allow for permissive HTN, hold Lisinopril, Triamterene/HCTZ. Continue Metoprolol. - Control stroke risk factors. Continue Statin, Aspirin. - f/u PT Recs. Possible Acute vertebral artery dissection, poa, acute- per CTA. -01/04- Hospitalist team spoke w/ [facility] (Dr. Grossman) with recs to continue ASA 325mg daily, and to call back if worsening stroke symptoms for possible transfer. [facility] Transfer Number - Stroke pathway, cardiac monitoring ANAHY- poa, resolved. May be prerenal. Encourage PO intake. Pt had here Lisinopril dose inc from 40->60mg which may have contributed. - Holding acei, consider starting at lower dose when resume. Diabetes- chronic, stable. - Check Hba1c- 9.2%. - substitued Levemir for Lantus. - Hold Metformin, continue SSI coverage. BS 140-180. Hypothyroidism- chronic, stable. c/w Synthroid GERD- chronic, stable. c/w PPI HLD- chronic, stable. - c/w statin, Gemfibrozil. [place] arteritis, chronic, stable- not currently on prednisone. Code- Changed to Full Code per ED team, and confirmed by both patient and daughter. Dvt ppx- scd. Allergy to Heparin analogues. Status- Pt changed to inapatient status 01/05 due to severity of presenting symptoms, risk of adverse events, and complexity of treatment plan. Pain Evaluation: Adequate Pain Control GI Prophylaxis: Proton Pump Inhibitor VTE Mechanical Devices: Intermittant Pneumatic CD Resuscitation Status: CPR: Attempt Resuscitation Roel Berumen MD Jan 05, 2017 14:57
--- NOTE | 2017-01-05 16:14 | NUR ---
Social Work-initial assessment/ multidisciplinary rounds: Data:See initial assessment. Pt is a 76 y/o female who was admitted on 01/03/19 for CVA per H&P. Pt's insurance is [employer] and PCP is Faustino French MD. EMR reviewed. Pt's readmission score is 3-high risk. CAMRYN met with pt and daughter Noemi [phone] at bedside, SW role explained. pt is alert and oriented x3. Pt resides at home alone where she remains independent with ADLs. Pt drives and does not use any DME. pt has no HH or SNF history. Pt has no [facility] care insurance or VA benefits. SW discussed DPOA/ advanced directive, pt confirms this has been complete, SW encouraged a copy to be brought in. PT discussed in morning rounds, no concerns noted around pt's capacity for self care. PT has seen pt and cleared pt for home with outpt PT services and fww. SW to await MD order for Fww. Pt's family confirms they will provide transport home at discharged. SW provided pt with discharge planning checklist and encouraged her to call with any questions,phone number provided. SW will continue to follow. Assessment:pt who is independent at baseline. Plan:Pt to discharge home when medically stable via POV. PT has cleared pt for home with outpt PT and Fww. SW to await order for Fww. SW will continue to follow. VIK Bahena Addendum: 01/05/17 at 1620 by TONY FAN SS Amended: Links added.
--- NOTE | 2017-01-05 17:15 | DRSVH ---
[facility] [address] [place] [address] Echocardiogram Report Name: ELVER SUGGS DStudy Date: 01/05/2017 Height: 59 in Hospital Exam Location: [facility] Weight: 159 lb Gender: Female BSA: 1.7 m2 : 1940 Age: 76 yrs BP: 143/82 mmHg Reason For Study: CVA Ordering Physician: [facility]PITAL[facility] Performed By: [facility] Staff Referring Physician: Kiko Porter Interpretation Summary 1) Normal ventricular thickness, size, wall motion, and systolic function (EF 60-65%). 2) Normal right ventricular size and function. 3) Injection of contrast documented no interatrial shunt. 4) Mild pulmonary artery dilation (diameter 3.5cm). This was not well visualized on the last echo. 5) Pulmonary artery pressures cannot be estimated because of the lack of a measurable TR jet velocity. 6) Compared to the echo done 01/15/2011, no significant change. Procedure: A two-dimensional transthoracic echocardiogram with color flow and Doppler was performed. The study quality was technically adequate. Comparison is made with the echocardiogram of 01/15/11. A saline contrast injection was performed to assess for cardiac shunting. The patient was in normal sinus rhythm during the exam. Left Ventricle: The left ventricle is normal in size. Left ventricular wall thickness is normal. Proximal septal thickening is noted. The ejection fraction is estimated to be 60-65%. Assessment of diastolic parameters indicates normal left ventricular diastolic function and normal filling pressures. Right Ventricle: The right ventricle grossly appears normal in size with probable normal systolic function. There is mild right ventricular hypertrophy. Atria: The left atrium is mildly dilated. Right atrial size is normal. The interatrial septum is intact with no evidence for an atrial septal defect. Injection of contrast documented no interatrial shunt. Mitral Valve: The mitral valve leaflets are mildly calcified. The mitral valve leaflets appear to open well. There is mild mitral annular calcification. There is trace mitral regurgitation. Aortic Valve: The aortic valve is trileaflet. The aortic valve is moderately calcified. The aortic valve opens well. There is no aortic valve stenosis. No aortic regurgitation is present. Tricuspid Valve: The tricuspid valve is normal in structure and function. There is a trace or physiologic amount of tricuspid regurgitation. Pulmonary artery pressures cannot be estimated because of the lack of a measurable TR jet velocity. Pulmonic Valve: The pulmonic valve is not well seen, but is grossly normal. There is a trace or physiologic amount of pulmonic regurgitation. Great Vessels: The aortic root is normal size. The ascending aorta is normal in size. Mild pulmonary artery dilation. The IVC is of normal diameter and collapses greater than 50% with a sniff. This suggests a low right atrial pressure of 3 mm Hg. Pericardium/ Pleura There is no pericardial effusion. There is no pleural effusion. MMode/2D Measurements & Calculations LVIDd: 4.7 cm RA long axis LVOT diam LVIDs: 2.8 cm LA A2 area: 21.9 cm FS: 40.5 % LA A4 area: 18.6 cm RA area AoV Opening EPSS: 0.65 cm LA length (vol): 5.7 cm IVSd: 1.0 cm LA vol: 61.1 ml : 13.1 cm Ao root diam LVPWd: 0.82 cm LA vol index RA vol : 28.1 ml asc Aorta : 36.5 ml/m2 RA Diam: 3.5 cm : 16.8 mm2 LV herrera. diameter/BSA LV sys. diameter/BSA (cm/m^2): 2.8 (cm/m^2): 1.7 Doppler Measurements & Calculations Ao V2 max MV E max eleazar MV E/A: 0.52 TR max eleazar : 163.6 cm/sec : 55.8 cm/sec Med Peak E' Eleazar : 208.1 cm/sec Ao max PG MV A max eleazar TR max PG : 10.7 mmHg : 108.2 cm/sec E/E' med: 14.9 : 17.3 mmHg Ao mean PG MV P1/2t: 45.8 msec Lat Peak E' Eleazar PA V2 max : 67.8 cm/sec LVOT Max Eleazar E/E' lat: 9.9 PA mean PG : 90.6 cm/sec E/e' average : 0.96 mmHg JAMES(I,D): 2.8 cm sev ratio MV dec time MV P1/2t max eleazar Ao V2 mean LV V1 max PG : 0.16 sec : 121.4 cm/sec Ao V2 VTI: 31.5 cm LV V1 VTI MVA(P1/2t): 4.8 cm2 : 18.4 cm JAMES(V,D): 2.6 cm2 PA V2 mean JAMES indexed to BSA : 46.5 cm/sec (cm^2/m^2): 1.7 PA pr(Accel) : 32.8 mmHg Reading Physician:[id number] PM
--- NOTE | 2017-01-05 18:34 | NUR ---
WHITING Pt complains of headache pain 9/10 on pain scale. 975 mg of PO Tylenol given with decreasing WHITING pain. Pt declined offer of cool cloth or ice pack. Pt reports is feeling "tired", facial droop has become more pronounced with onset of fatigue. Family has been at bedside for most of the day. Pt encouraged to continue to rest. Family has left for the evening to allow for increased rest period. Call light in reach, will continue to monitor.
[2017-01-06] VITALS (7 sets, daily range): BP systolic 135–162; BP diastolic 73–91; PULSE 78–86; RESP 18; O2SAT 95–97
[2017-01-06] MEDS: 0.9% Sodium Chloride 1,000 ML IV SCH ×2 (00:35→07:57)
[2017-01-06] MEDS: Insulin LISPRO 300 Unit/3 mL Inj SUBQ SCH ×4 (07:45→21:51)
[2017-01-06] MEDS: Insulin GLARgine 100 Unit/mL Syringe SUBQ SCH ×2 (07:55→21:57)
--- NOTE | 2017-01-06 13:30 | NUR ---
Social Work-readiness for discharge/multidisciplinary rounds: Data:EMR reviewed. Pt is a 76 y/o female who was admitted on 01/03/17 for CVA per H&P. Pt is not medically stable anticipate 1-2 more days. PT has seen pt and recommended home with HH services. order received for RN and Pt. SW met with pt and daughter Shanti H:[phone] or [phone] at bedside, SW role explained. Pt and daughter confirm that pt will be staying with daughter Shanti post discharge for a period of time. The [place] that pt will be at is [address] [place]. SW explained recommendation of HH services, HH choice list provided. Pt and daughter have no agency preference. SW referred to the rotating calendar and made referral to [facility] for RN and PT, access given. SW discussed walker and pt and daughter confirm this has already been obtained. Pt's daughter to provide transport home. F2F to be completed by . SW will continue to follow. Assessment:Pt who would benefit from HH. Plan:Pt to discharge home with daughter when medically stable via POV. Referral made to [facility] for RN and PT.F2F to be completed by . SW will continue to follow. VIK Bahena
--- NOTE | 2017-01-06 14:31 | NUR ---
choice list provided. VIK Bahena
--- NOTE | 2017-01-06 17:33 | NUR ---
Neuro Patient has steady gait with FWW and SBA while ambulating in halls. Pt tolerates ambulation well. Some mild right facial droop noted but leg strength is symmetrical bilaterally. Pt denies pain or headache during shift. Neuro assessment is stable and unchanged during shift. Patient pleasant and engaged in care, using humor and answering appropriately. Bed low and locked, call light in reach, bed alarm on for safety with care and frequent rounding ongoing.
--- NOTE | 2017-01-06 17:39 | PCM.PNMED ---
Subjective Date of Service Jan 06, 2017 Subjective Pt denies any worsening of weakness or any new neuro deficits. Exam Vital Signs Vital Sign - Last Date Time Temp Pulse Resp B/P Pulse Ox O2 Delivery O2 Flow Rate FiO2 01/06/17 13:47 37.1 83 18 153/83 96 Room Air Intake and Output 01/05/17 01/05/17 01/06/17 Cumulative From/Thru 15:00 23:00 07:00 01/03/17 13:59 - 01/06/17 06:05 Intake Total 250 ml 800 ml 2302 ml 6716 ml Output Total 775 ml 900 ml 2400 ml 6175 ml Balance -525 ml -100 ml -98 ml 541 ml Intake Oral 250 ml 800 ml 200 ml 2450 ml IV Total 2102 ml 4266 ml Output Urine Total 775 ml 900 ml 2400 ml 6175 ml # Bowel Movements 0 0 0 Exam Gen: NAD, AOx4, HEENT: NCAT, PERRLA, EOMI, MMM, sclera anicteric. +R Facial Droop. Neck: Soft, supple, no thyromegaly/JVD/LAD. Resp: CTAB, no R/R/W. CV: S1 S2, RRR, No M/R/G Abd: Soft, (+) BS, NT/ND, no guarding/rebound/organomegaly. Ext: +PP, No edema. Skin: warm/dry/intact Neuro/Psych: Cooperative, appr mood/affect. CN II-XII grossly intact, except R Facial Droop. RLE 4.5/5 strength. RUE- 5/5. No sensory deficits. No DDK. IVs and Medications Medications Reviewed: Medications were reviewed in detail Lab and Diagnostics Result Diagram: 01/03/17 1555 01/04/17 0525 X-Rays, CTs and MRIs 01/04- MRA HEAD wo cont- 1. No high-grade stenosis or occlusion of the central intracranial arteries. 2. Nonvisualized segments of the distal right vertebral artery suggesting high- grade segmental stenoses or occlusion. Recommend correlation with a contrast enhanced MR angiogram if clinically feasible. 3. 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 X-Ray Chest Interpretation Chest Xray Interpretation: IMPRESSION: A source of acute shortness of breath is not found. Dictated by: Lamont Vera M.D. on 01/03/2017 at 16:52 Approved by: Lamont Vera M.D. on 01/03/2017 at 16:53 View: Portable, 1 view Interpretation / Wet Read by: Interpret - Radiologist CT Head Interpretation IMPRESSION: Mild microvascular atherosclerotic change in the deep white matter of each hemisphere, as was previously the case in 2014. No definite acute disease is found. Dictated by: Lamont Vera M.D. on 01/03/2017 at 16:06 Approved by: Lamont Vera M.D. on 01/03/2017 at 16:07 Study: Head CT no contrast Interpretation / Wet Read by: Interpret - Radiologist 12-lead ECG ECG Interpretation Time: 15:30 Interpreted by: ED physician Normal ECG Interpretation: Normal ECG w/ rate of... 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 Pt +RLE Weakness on exam. -01/04- MRA HEAD wo cont- No occlusion of central intracranial arteries. Possible distal right vertebral artery suggesting high-grade segmental stenoses or occlusion. 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 - Stroke pathway, cardiac monitoring - Allow for permissive HTN, hold Lisinopril, Triamterene/HCTZ. Continue Metoprolol. - Control stroke risk factors. Continue Statin, Aspirin. - PT Recs, home PT. [employer] Of [employer] will arrange. Possible Acute vertebral artery dissection, poa, acute- per CTA. -01/04- Hospitalist team spoke w/ [facility] (Dr. Grossman) with recs to continue ASA 325mg daily, and to call back if worsening stroke symptoms for possible transfer. [facility] Transfer Number - Stroke pathway, cardiac monitoring ANAHY- poa, resolved. May be prerenal. Encourage PO intake. Pt had here Lisinopril dose inc from 40->60mg which may have contributed. - Holding acei, consider starting at lower dose when resume. Diabetes- chronic, stable. - Check Hba1c- 9.2%. - substitued Levemir for Lantus. - Hold Metformin, continue SSI coverage. BS 140-180. Hypothyroidism- chronic, stable. c/w Synthroid GERD- chronic, stable. c/w PPI HLD- chronic, stable. - c/w statin, Gemfibrozil. Mandaeism arteritis, chronic, stable- not currently on prednisone. Code- Changed to Full Code per ED team, and confirmed by both patient and daughter. Dvt ppx- scd. Allergy to Heparin analogues. Dispo- Anticipate discharge in 1-2 days. PT Recs, home PT. [employer] [facility] [employer] will arrange. 01/05- Spoke w/ [facility] Neurologist Dr. Hank Claros about case and follow up instructions. Confirms that ASA 325mg daily instead of Coumadin. Can slowly decrease blood pressure as indicated for regular stroke management. If symptoms worsen or new symptoms develop will call the [place] Neurologist organic preparation technician at number above. They can follow up at his office after discharge. Phone . GI Prophylaxis: Proton Pump Inhibitor VTE Mechanical Devices: Intermittant Pneumatic CD Resuscitation Status: CPR: Attempt Resuscitation Roel Berumen MD Jan 06, 2017 17:39
[2017-01-07 00:30] VITALS: BP 178/89; PULSE 78; RESP 18; O2SAT 96
[2017-01-07 05:02] VITALS: BP 146/73; PULSE 80; RESP 18; O2SAT 97
--- NOTE | 2017-01-07 07:14 | NUR ---
pain Pt c/o headache 12/25 pain. Neuro checks within normal limits. Tylenol 650mg given and pt appeared to be asleep without distress. Care continues.
[2017-01-07] MEDS: Insulin LISPRO 300 Unit/3 mL Inj SUBQ SCH ×3 (07:41→16:01)
[2017-01-07] MEDS: Insulin GLARgine 100 Unit/mL Syringe SUBQ SCH (08:51)
[2017-01-07 09:20] VITALS: BP 167/90; PULSE 85; RESP 18; O2SAT 97
[2017-01-07 10:42] VITALS: PULSE 81
[2017-01-07] MEDS ORDERED: Aspirin-Expunged Drug, Do Not Renew! PO (12:12)
--- NOTE | 2017-01-07 12:14 | PCM.DIMED ---
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 You were transferred to [facility] for further close observation. Bebeto Delgado MD Jan 07, 2017 12:14
--- NOTE | 2017-01-07 12:24 | PCM.DC.MED ---
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 COMPARISON: [facility], CT, CT BRAIN WO CON, 01/03/2017, 15:35. FINDINGS: Image quality: Diagnostic. Brain: There is no acute intra-axial or extra-axial hemorrhage. No extra-axial fluid collection is identified. There is no midline shift or mass effect. The orbits are grossly unremarkable. There continues to be an area of encephalomalacia evident involving the right frontal lobe deep white matter. Additional probable areas of low-attenuation within the periventricular white matter also may be present. The ventricles and cortical sulci are age-appropriate. Bones: Calvarium and visualized facial bones are grossly intact. The imaged paranasal sinuses and mastoid air cells are clear. IMPRESSION: Unchanged appearance of the head. No acute intracranial hemorrhage. Chronic small vessel ischemic changes are again present. Dictated by: Tom Reyes M.D. on 01/07/2017 at 11:42 Approved by: Tom Reyes M.D. on 01/07/2017 at 11:44 PROCEDURE: MRI BRAIN WITH CONTRAST INDICATIONS: Right lower extremity weakness. TECHNIQUE: Axial diffusion and ADC, axial T2, axial FLAIR, sagittal flair, axial T1, coronal T2, axial SWI, and axial and coronal VIBE post contrast. COMPARISON: [facility], MR, MR ANGIO HEAD WO CON, 01/04/2017, 11: 17. [facility], MR, MR ANGIO NECK W CON, 01/04/2017, 17:35. BRAIN: CSF spaces: There is aiwx-[id number]-cbelxvxv cerebral volume loss with prominence of the ventricles and sulci. Basal cisterns are patent. No extra-axial fluid collections. Brain: Diffusion weighted images demonstrate a left paracentral region of restricted diffusion in the addy with corresponding mild T2 hyperintensity consistent with an acute infarct. There is no evidence of associated hemorrhagic transformation. No intracranial hemorrhage, mass, or mass effect. There are periventricular and subcortical foci of white matter T2 hyperintensity consistent with mild chronic small vessel ischemic changes. There is a small linear filling defect in the distal right vertebral artery at its junction with the basilar artery likely representing near- occlusive thrombus. There is also partial filling defects within the proximal basilar artery suggestive of partial thrombus. No abnormal intracranial enhancement. Skull and face: Calvarial marrow signal is normal. Orbits appear normal. Sinuses: Mild mucosal thickening is noted in the ethmoid and maxillary sinuses. Mastoid air cells are clear. IMPRESSION: 1. 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 2. Mild chronic white matter small vessel ischemic changes and mild to moderate cerebral volume loss. 3. Small filling defect at the junction of the right vertebral artery with the basilar artery as well as suggestion of filling defect in the proximal basilar artery. Findings likely represent foci of thrombus and correspond to focal stenosis in the distal right vertebral artery on the concurrent angiogram studies. Dictated by: Arcadio James M.D. on 01/04/2017 at 18:31 Approved by: Arcadio James M.D. on 01/04/2017 at 18:45 PROCEDURE: CT ANGIO HEAD AND NECK (P) INDICATIONS: dissection? TECHNIQUE: Pre-contrast 4.5 mm thick sections acquired from the foramen magnum to the vertex. After the administration of intravenous contrast, 1 mm thick sections acquired from the aortic arch through the [place] of [place]. Post-contrast 4.5 mm thick sections then re-acquired from the foramen magnum to the vertex. 3- dimensional bkbpchw-gojiifphb-jwoaonvryy (MIP) and/or volume rendering reformats were acquired of the central intracranial vasculature and neck separately. For radiation dose reduction, the following was used: automated exposure control, adjustment of mA and/or kV according to patient size. COMPARISON: [facility], CT, CT BRAIN WO CON, 01/03/2017, 15:35. [facility], MR, MR BRAIN W CON, 01/04/2017, 17:35. [facility], MR, STROKE PROTOCOL (PNL), 05/24/2007, 6:34. [facility], MR, MR ANGIO NECK W CON, 01/04/2017, 17:35. FINDINGS: Image quality: Excellent. BRAIN: CSF spaces: Ventricles are normal in size and shape. Basal cisterns are patent. No extra-axial fluid collections. Brain: No midline shift. No intracranial bleeds or masses. Deep and periventricular white matter changes are present likely associated with chronic microvascular ischemic change. A 5 mm diameter hypodense region is present within the left addy which corresponds with the region of increased restricted diffusion on the MRI from earlier today and subacute pontine infarct. Hernandes- white matter interface appears intact. Skull and face: Calvarium and facial bones appear intact, without suspicious lesions. Orbits appear normal. Sinuses: Sinuses and mastoids are clear. HEAD CT ANGIOGRAPHY: Anterior circulation: Intracranial internal carotid arteries demonstrate normal course. There is moderate stenosis of the cavernous portions of the bilateral internal carotid artery secondary to dense atheromatous calcifications. The flow within the paired anterior cerebral arteries is normal and symmetric. The flow within the middle cerebral arteries is normal and symmetric. The anterior communicating artery is seen. No aneurysms are seen. Posterior circulation: There is a smooth tapered narrowing of the distal aspect of the right vertebral artery, which is occluded just central to the expected point of basilar artery formation. This is a new finding when compared with the MRI of the brain dated 05/24/07. The basilar artery demonstrates normal course and caliber. NECK CT ANGIOGRAPHY: Carotid system: The great vessels demonstrate a conventional anatomy as they arise from the aortic arch. The origins of the common carotid arteries appear patent. The common carotid arteries demonstrate normal caliber and courses. The bifurcation regions are both widely patent. The internal carotid arteries demonstrate normal calibers and courses. Posterior circulation: The origins of the vertebral arteries both appear widely patent. The more superior extracranial portions of both vertebral arteries also demonstrate normal courses and calibers. They join to form a normal appearing basilar artery. Soft tissues: Visualized neck soft tissues demonstrate no suspicious abnormalities. Bones: No suspicious bony lesions. Visualized cervical spine appears normally aligned. IMPRESSION: 1. Smooth tapered narrowing and occlusion of the distal right vertebral artery. This is a new finding when compared with the prior MRI of this region from 2007 where the right vertebral artery was the dominant artery forming the basilar artery. Given the change in vessel size from 2007, the smooth tapered narrowing to occlusion, and the recent pontine infarct, acute vertebral artery dissection is suspected. These findings were discussed with Dr. Oscar at 9:53 PM on 01/04/17. 2. Moderate stenosis of the cavernous portions of the bilateral internal carotid artery secondary to atheromatous calcifications. 3. No other stenosis, occlusion, or aneurysm. Dictated by: Jany Bach M.D. on 01/04/2017 at 21:34 Approved by: Jany Bach M.D. on 01/04/2017 at 21:57 PROCEDURE: MRA ANGIOGRAM NECK WITH CONTRAST ([id number]) INDICATIONS: CVA rule out TECHNIQUE: Axial and sagittal TruFISP through the neck. Coronal dynamic MRA after the administration of contrast in the arterial and venous phases, with rotating 3- dimensional maximum intensity projection (MIP) reformats constructed from subtraction images. COMPARISON: [facility], MR, MR BRAIN W CON, 01/04/2017, 17:35. [facility], MR, MR ANGIO HEAD WO CON, 01/04/2017, 11:17. FINDINGS: Image quality: Excellent. Carotids: Great vessels demonstrate conventional anatomy as they arise from the aortic arch. The origins of the common carotid arteries appear patent. The calibers and courses of both common carotid arteries are normal. There is minimal narrowing of less than 50% in the left carotid bulb. The right carotid bulb is widely patent. The internal carotid arteries demonstrate normal course and caliber. Posterior circulation: The origins of the vertebral arteries appear patent. There is a segment of the distal right vertebral artery which is diminutive in caliber with a focus of high grade stenosis or near-occlusion at the junction with the basilar artery. The left vertebral artery appears patent along its course. The basilar artery appears grossly patent. Miscellaneous: Subclavian arteries appear patent. Pre-contrast images through the neck show no soft tissue abnormalities. IMPRESSION: 1. Focal high-grade stenosis at the junction of the right vertebral artery and basilar artery. 2. Segmental decreased caliber of the distal right vertebral artery proximal to junction raises the possibility of dissection. Given the acute left addy infarct on the concurrent brain MRI, recommend further evaluation with CT angiogram if clinically indicated. The findings were the discussed with Dr. Oscar on 01/04/17 at 6:45 PM. The estimate of stenosis included in the report of the imaging study was calculated using the NASCET method Dictated by: Arcadio James M.D. on 01/04/2017 at 18:45 Approved by: Arcadio James M.D. on 01/04/2017 at 18:55 X-Ray Chest Interpretation Chest Xray Interpretation: IMPRESSION: A source of acute shortness of breath is not found. Dictated by: Lamont Vera M.D. on 01/03/2017 at 16:52 Approved by: Lamont Vera M.D. on 01/03/2017 at 16:53 View: Portable, 1 view Interpretation / Wet Read by: Interpret - Radiologist CT Head Interpretation IMPRESSION: Mild microvascular atherosclerotic change in the deep white matter of each hemisphere, as was previously the case in 2014. No definite acute disease is found. Dictated by: Lamont Vera M.D. on 01/03/2017 at 16:06 Approved by: Lamont Vera M.D. on 01/03/2017 at 16:07 Study: Head CT no contrast Interpretation / Wet Read by: Interpret - Radiologist ECG 12 Lead ECG Interpretation Time: 15:30 Interpreted by: ED physician Normal ECG Interpretation: Normal ECG w/ rate of... (82), Normal rate, Normal sinus rhythm, No acute ischemic changes, Normal QRS, Normal axis, Normal intervals, Adequate tracing Brief History HPI obtained by Dr. Berumen on 01/03 68-year-old pleasant female with a history of diabetes on insulin, hypertension , hyperlipidemia, taoism arteritis presenting with 2-4 days of right lower extremity weakness, slurred speech, right facial droop. Patient lives alone and noticed that her right lower extremity had gotten weaker. Patient's daughter says that she first saw her today and immediately noticed the right facial droop and slurred speech. Patient says that since arriving in ED the right lower extremity has gotten somewhat stronger however still has a right facial droop. Patient denies any history of stroke. Patient does take 81 mg of aspirin daily. Patient says that she was at her primary care physician's office Thursday and her lisinopril was increased from 40-60 mg. She says that her symptoms started shortly after this but is not sure if it is related. Is not any anticoagulation. Patient does not have a history of atrial fibrillation. Denies chest pain shortness of breath. Denies any fever chills. Denies any recent falls. 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 Brief hospital course Patient was admitted to the hospital on the with subacute onset of right lower extremity weakness, slurred speech with right facial droop. Following imagings suggested acute brainstem infarction within the left addy on MRI of brain. MRA suggested of possible acute vertebral artery dissection, which was confirmed in CTA. As per discussion with [facility] neuro team on 01/04, , patient was continued aspirin 325 mg daily and closely observed in the hospital. On 01/07, hospital day 4, patient developed acute onset of mild headache with blurriness on the left side, with mild sensory decreased on the left face. Although neurologic deficit from pontine infarction seems to resolve , after discussion with neurosurgery, Neurology, it was decided to transfer to [facility] with close observation with neurology and neurosurgery. Repeat CTH on discharge didn't show any new bleeding. Pt was initially allowed permissive hypertension, however given acute dissection with uncontrolled BP [id number]. Pt was given 10mg amlodipine home dose 10:30am on . 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 Pt +RLE Weakness on exam. -01/04- MRA HEAD wo cont- No occlusion of central intracranial arteries. Possible distal right vertebral artery suggesting high-grade segmental stenoses or occlusion. 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 - Stroke pathway, cardiac monitoring - Allow for permissive HTN, hold Lisinopril, Triamterene/HCTZ. Continue Metoprolol. - Control stroke risk factors. Continue Statin, Aspirin. - PT Recs, home PT. Cartoon Animator will arrange. Possible Acute vertebral artery dissection, poa, acute- per CTA. -01/04- Hospitalist team spoke w/ [facility] Neuro (Dr. Grossman) with recs to continue ASA 325mg daily, and to call back if worsening stroke symptoms for possible transfer. [facility] Transfer Number - Stroke pathway, cardiac monitoring ANAHY- poa, resolved. May be prerenal. Encourage PO intake. Pt had here Lisinopril dose inc from 40->60mg which may have contributed. - Holding acei, consider starting at lower dose when resume. Diabetes- chronic, stable. - Check Hba1c- 9.2%. - substitued Levemir for Lantus. - Hold Metformin, continue SSI coverage. BS 140-180. Hypothyroidism- chronic, stable. c/w Synthroid GERD- chronic, stable. c/w PPI HLD- chronic, stable. - c/w statin, Gemfibrozil. Orthodox arteritis, chronic, stable- not currently on prednisone. Code- Changed to Full Code per ED team, and confirmed by both patient and daughter. Dvt ppx- scd. Allergy to Heparin analogues. Dispo- Anticipate discharge in 1-2 days. PT Recs, home PT. Cartoon Animator will arrange. 01/05- Spoke w/ [facility] Neurologist Dr. Hank Claros about case and follow up instructions. Confirms that ASA 325mg daily instead of Coumadin. Can slowly decrease blood pressure as indicated for regular stroke management. If symptoms worsen or new symptoms develop will call the [place] Neurologist hospital nurse liaison at number above. They can follow up at his office after discharge. Phone . Exam Vital Signs (Last) Date Time Temp Pulse Resp B/P Pulse Ox O2 Delivery O2 Flow Rate FiO2 01/07/17 10:42 81 01/07/17 09:20 36.6 18 167/90 97 Room Air Exam Neuro:speech coherent, fluent, AAOx3 PERRLA, EOMI, symmetric face, no uvulae tongue deviation, able shrug shoulders equally able rotate neck equally on both sides motor 5/5 throughout, Sensory mildly decreased to dull touch on left face, no facial droop on rt face decreased vision on Left eye Test 01/03/17 15:55 01/03/17 16:35 01/04/17 05:25 White Blood Count 5.4th/mm3 (3.8-10.1) Red Blood Count 4.14mil/mm3 (3.90-5.20) Hemoglobin 12.9g/dL (12.0-15.6) Hematocrit 36.1% (35.0-46.0) Mean Corpuscular Volume 87.2fL (81-100) Mean Corpuscular Hemoglobin 31.2pg (27.0-35.0) Mean Corpuscular Hemoglobin Concent 35.7% (32.0-37.0) Red Cell Distribution Width 12.6% (12.3-15.4) Platelet Count 320bil/L (150-400) Neutrophils (%) (Auto) 57.7% (40-74) Lymphocytes (%) (Auto) 31.0% (14-46) Monocytes (%) (Auto) 7.2% (4-12) Eosinophils (%) (Auto) 3.3% (0-5) Basophils (%) (Auto) 0.6% (0-3) Prothrombin Time 10.2sec (8.1-12.5) Prothromb Time International Ratio 0.95ratio Total Bilirubin 0.2mg/dL (0.0-1.2) Aspartate Amino Transf (AST/SGOT) 37U/L (0-50) Alanine Aminotransferase (ALT/SGPT) 28U/L (0-32) Alkaline Phosphatase 77U/L (25-165) Troponin T < 0.010ug/L (0.0-0.011) Pro-B-Type Natriuretic Peptide 31.99pg/mL (0-738) Total Protein 7.7g/dL (6.4-8.4) Albumin 4.4g/dL (3.4-5.0) Hold Mcc[place]ough Top Tube Received (Received) Urine Color Yellow (YELLOW) Urine Appearance Hazy (CLEAR,HAZY) Urine pH 5.5 (5.0-8.0) Urine Specific [place] 1.020 (1.003-1.035) Urine Protein 100mg/dL (NEG,TRACE) Urine Glucose (UA) >1000mg/dL (NEGATIVE) Urine Ketones Negativemg/dL (NEGATIVE) Urine Occult Blood Negative (NEGATIVE) Urine Nitrite Negative (NEGATIVE) Urine Bilirubin Negative (NEGATIVE) Urine Urobilinogen Normalmg/dL (NORMAL) Urine Leukocyte Esterase Negative (NEGATIVE) Urine RBC 0-2/hpf (0-2) Urine WBC 0-5/hpf (0-5) Urine Epithelial Cells Many/hpf (NONE-MOD) Urine Crystals None seen (NONE SEEN) Urine Bacteria Few/hpf (NONE-FEW) Urine Hyaline Casts None/lpf (NONE) Urine Granular Casts None seen (NONE SEEN) Urine Waxy Casts None seen (NONE SEEN) Urine Red Blood Cell Casts None seen (NONE SEEN) Urine White Blood Cell Casts None seen (NONE SEEN) Urine Mucus None seen (None Seen) Urine Trichomonas None seen (NONE SEEN) Urine Yeast None (NONE SEEN) Urinalysis Comment None Urine Culture Reflexed Not indicated Hold Urine Received (Received) Sodium Level 136mEq/L (134-144) Potassium Level 4.7mEq/L (3.5-5.2) Chloride Level 102mEq/L (97-108) Carbon Dioxide Level 18mmol/L (18-29) Blood Urea Nitrogen 32mg/dL (8-27) Creatinine 0.96mg/dL (0.57-1.00) Estimat Glomerular Filtration Rate 81mL/min (>59) Glucose Level 151mg/dL (60-99) Hemoglobin A1c 9.2% (4.8-5.6) Calcium Level 9.3mg/dL (8.5-10.1) Magnesium Level 2.0mg/dL (1.6-2.6) Triglycerides Level 656mg/dL (0-149) Cholesterol Level 243mg/dL (100-199) LDL Cholesterol, Calculated 80.800mg/dL (0-99) VLDL Cholesterol 131.200mg/dL HDL Cholesterol 31mg/dL (>39) Cholesterol/HDL Ratio 7.84 (0.0-4.4) Discharge Medications Discharge Medications ([Aspirin-Expunged Drug, Do Not Renew!]) 325 MG TABLET 325 MG PO DAILY Prescribed by: BEBETO GAMEZ MD Acetaminophen (Acetaminophen) 500 Mg Tablet 1,000 MG PO BID (Reported) Amlodipine (Norvasc) 10 Mg Tablet 10 MG PO QAM (Reported) Gemfibrozil (Gemfibrozil) 600 Mg Tablet 600 MG PO QAM (Reported) Insulin Detemir (Levemir U100 Insulin Vial) 100 Unit/1 Ml Vial 18 UNIT SUBQ BID (Reported) Levothyroxine (Levothyroxine) 112 Mcg Tablet 112 MCG PO QAM (Reported) Metformin (Metformin) 500 Mg Tablet 500 MG PO EVERY OTHER DAY (PM) (Reported) Metformin (Metformin) 500 Mg Tablet 500 MG PO QAM (Reported) Metoprolol Tartrate (Metoprolol Tartrate) 25 Mg Tablet 12.5 MG PO BID (Reported ) Nortriptyline (Nortriptyline) 10 Mg Capsule 20 MG PO HS (Reported) Omeprazole (Omeprazole) 20 Mg Capsule.dr 20 MG PO BIDWM (Reported) Pravastatin (Pravastatin) 20 Mg Tablet 20 MG PO HS (Reported) Followup Plan Disposition: [facility] Patient Instructions You were hospitalized with acute stroke on your brainstem, Given this new onset of dissection on your vertebral artery, headache and blurry vision. You were transferred to [facility] for further close observation. Time spent 65 minutes Bebeto Gamez MD Jan 07, 2017 12:24
--- NOTE | 2017-01-07 12:46 | DRSVH ---
PROCEDURE: CT BRAIN WITHOUT CONTRAST ([id number]) INDICATIONS: new onset headache blurrvy vision TECHNIQUE: Noncontrast 4.5 mm thick angled axial sections acquired from the foramen magnum to the vertex, with c oronal reformats. COMPARISON: [facility], CT, CT BRAIN WO CON, 01/03/2017, 15:35. FINDINGS: Image quality: Diagnostic. Brain: There is no acute intra-axial or extra-axial hemorrhage. No extra-axial fluid collection is i dentified. There is no midline shift or mass effect. The orbits are grossly unremarkable. There continues to be an area of encephalomalacia evident involving the right frontal lobe deep white matter. Additional probable areas of low-attenuation within the periventricular white matter also m ay be present. The ventricles and cortical sulci are age-appropriate. Bones: Calvarium and visualized facial bones are grossly intact. The imaged paranasal sinuses and m astoid air cells are clear. IMPRESSION: Unchanged appearance of the head. No acute intracranial hemorrhage. Chronic small vesse l ischemic changes are again present. Dictated by: Tom Reyes M.D. on 01/07/2017 at 11:42 Approved by: Tom Reyes M.D. on 01/07/2017 at 11:44
[2017-01-07 15:25] VITALS: BP 157/85; PULSE 101; RESP 18; O2SAT 95
--- NOTE | 2017-01-07 15:31 | NUR ---
Transfer Pt to be transferred to [facility] in [place], N[facility]U - [address]. No complains of increased pain or neuro deficits. VSS. Transport scheduled to bulk picker at 1620, Report called to Ayleen, continued monitoring. Addendum: 01/07/17 at 1716 by NIESHA GARCIA RN Pt transferred via ACLS, at approx 1700
--- NOTE | 2017-01-07 16:52 | NUR ---
Social Work-discharge: Data& assessment:EMR reviewed. Pt is on day 4 of hospitalization for CVA per H&P. SW updated by railroad repairer that pt is transferring to [facility] today. No other SW needs identified. All updated and agreeable to plan. Plan:Pt to transfer to [facility] today via BLS. No other SW needs identified. All updated and agreeable to plan. VIK Bahena
== END 2017-01-07 17:02 | disposition short-term general hospital (02) | DRG 64 ==
LOC: SED 13:54 → INTOOBSV 18:29 → MPC 18:29 → OBSVTOIN 18:29
PROVIDERS: ADMIT Internal Medicine; ATTEND Internal Medicine
DX: I63.8 Other cerebral infarction (principal); I77.74 Dissection of vertebral artery; N17.9 Acute kidney failure, unspecified; G81.91 Hemiplegia, unspecified affecting right dominant side; Z79.4 Long term (current) use of insulin; Z79.82 Long term (current) use of aspirin; Z79.84 Long term (current) use of oral hypoglycemic drugs; R29.810 Facial weakness; R47.81 Slurred speech; E11.9 Type 2 diabetes mellitus without complications; E03.9 Hypothyroidism, unspecified; K21.9 Gastro-esophageal reflux disease without esophagitis; E78.5 Hyperlipidemia, unspecified; M31.6 Other giant cell arteritis; R40.2142 Coma scale, eyes open, spontaneous, at arrival to emergency department; R40.2252 Coma scale, best verbal response, oriented, at arrival to emergency department; R40.2362 Coma scale, best motor response, obeys commands, at arrival to emergency department; R40.2412 Glasgow coma scale score 13-15, at arrival to emergency department

== ENCOUNTER 2017-01-12 17:38 | Observation (INO) | payer MEDICARE ==
[~2017-01-12] VITALS: Ht 149.9 cm; Wt 71.3 kg
[~2017-01-12 17:38] MED LIST changes: +ACET-171 PO; -ACET325T51 PO; -ASPI-973 PO; +Aspirin-Expunged Drug, Do Not Renew! PO; -CEPH-512 PO; -FENO160T14 PO; -GLIP10TA10 PO; -HYDR50TA3 PO; -INSU100I25 SQ; +INSU100V4 SUBQ; -LISI40TA PO; +OMEP20CA11 PO; -OMEP40CA36 PO; -POTA10TA19 PO; -PRE20 PO
[2017-01-12 18:00] VITALS: BP 150/80; PULSE 84; RESP 14; O2SAT 97
--- NOTE | 2017-01-12 18:08 | ED.REPORT ---
HPI-Neurologic Deficit Date of Service Jan 12, 2017 ED Provider: Roberth Arango DO Pt is a 76 y/o female with a history of stroke, hypertension, and DM on Plavix who presents to the ED c/o right posterior headache onset yesterday s/p having a stroke on 01/04/17. She states that her headache is exacerbated by movement. Additional symptoms include dizziness, shoulder pain, blurry vision in her R eye , and cough that is baseline. She denies nausea, vomiting, diarrhea, neck pain, fever, chills, or SOB. She started Plavix on 01/08/17 after being discharged from the hospital. Nursing Notes Stated Complaint: BACK OF HEAD PAIN/POST STROKE Chief Complaint: Neuro Symptoms/ Deficits Nursing Notes Reviewed: Yes Allergies: Coded Allergies: Penicillins (Verified Allergy, Severe, Anaphylaxis, 01/12/17) Heparin Analogues (Verified Adverse Reaction, Intermediate, BURNING VEINS FROM IV, SUBQ IS OK, 01/12/17) BURNING VEINS FROM IV HEPARIN--SUB Q HEPARIN OK levofloxacin (Verified Adverse Reaction, Intermediate, INSTANT MIGRAINE, NIGHTMARES, 01/12/17) niacin (Verified Adverse Reaction, Intermediate, FLUSHING, NAUSEA, DIARRHEA, 01/12/17) Scheduled ([Aspirin-Expunged Drug, Do Not Renew!]) 325 MG TABLET 325 MG PO DAILY Acetaminophen (Acetaminophen) 500 Mg Tablet 1,000 MG PO BID Amlodipine (Norvasc) 10 Mg Tablet 10 MG PO QAM Gemfibrozil (Gemfibrozil) 600 Mg Tablet 600 MG PO QAM Insulin Detemir (Levemir U100 Insulin Vial) 100 Unit/1 Ml Vial 18 UNIT SUBQ BID Levothyroxine (Levothyroxine) 112 Mcg Tablet 112 MCG PO QAM Metformin (Metformin) 500 Mg Tablet 500 MG PO EVERY OTHER DAY (PM) Metformin (Metformin) 500 Mg Tablet 500 MG PO QAM Metoprolol Tartrate (Metoprolol Tartrate) 25 Mg Tablet 12.5 MG PO BID Nortriptyline (Nortriptyline) 10 Mg Capsule 20 MG PO HS Omeprazole (Omeprazole) 20 Mg Capsule.dr 20 MG PO BIDWM Pravastatin (Pravastatin) 20 Mg Tablet 20 MG PO HS General Time Seen by Provider: 18:08 Chief Complaint Other (Posterior headache) Hx Obtained From: Patient Arrived By: Walk-in Sudden in Onset?: Yes Onset Occurred: Yesterday Progression Since Onset: Constant Quality: Painful Severity: Current: Mild Severity: Maximum: Moderate Exacerbated by: Movement Recent Healthcare: Recent hospitalization Past Medical History Past Medical History 1. Hypertension 2. Diabetes type 2. 3. Gastroesophageal reflux disease. 4. Hypothyroidism. 5. Dyslipidemia. 6. History of post ureteral stent complications with iliopsoas abscess and small-bowel obstruction, resolved with antibiotics. 7. History of hormone replacement therapy. 8. History of left-sided ureteral stones. 9. Arthritis of the neck, right shoulder, left shoulder and coccyx. 10. History of chronic calculus cholecystitis status post laparoscopic cholecystectomy and cholangiograms. 11. History of rectocele, vault prolapse, status post prior hysterectomy and prior anterior vaginal repair status post posterior Elevate system with posterior vaginal graft repair with apical vaginal repair and prophylactic mini-ARC urethropexy. Reports: Stroke (01/04/17) Reports: Migraines Past Surgical History Hysterectomy. Cholecystectomy. Kidney stones removal, stenting. History of left knee surgery. Smoking History Never Smoker Social History Alcohol Use: Denies alcohol use Other Social History: Local resident Ambulatory Status Independent Review of Systems Constitutional: Denies: Chills, Fever Respiratory: Reports: Non-productive cough (baseline), Denies: Shortness of breath GI: Denies: Diarrhea, Nausea, Vomiting Musculoskeletal: Reports: Extremity pain (Shoulder), Denies: Neck pain Neurologic: Reports: Dizziness, Headache (posterior) Complete sys rev & neg: except as marked. Physical Exam Initial Vital Signs Vital Signs (First) Date Time Temp Pulse Resp B/P Pulse Ox O2 Delivery O2 Flow Rate FiO2 01/12/17 18:00 36.5 84 14 150/80 97 Room Air Initial VS: Reviewed Neck: Supple, Full range of motion Abdomen / GI: Soft, Non-tender Extremities: Vascular intact, Neuro intact, No swelling, No tenderness Skin: Warm, Dry, No cyanosis Psychiatric: Mood/affect normal, Behavior normal, Normal thought content General/Constitutional: Awake, Alert Head / Eyes: Atraumatic, Normocephalic Mild blurred vision in R eye Mild facial droop on R side, baseline Respiratory / Chest: Atraumatic, Breath sounds NL, Breath sounds = bilat, No respiratory distress Cardiovascular: Heart rate NL, Regular rhythm, Heart sounds NL Neurologic: Oriented X3, Speech NL, CN II - XII intact Normal finger-nose test bilaterally Interpretation & Diagnostics CT angio of head and neck: IMPRESSION: 1. Smooth tapered narrowing of the distal right vertebral artery unchanged from the study dated 12/2516. 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 2. Moderate stenosis of the cavernous portions of the bilateral internal carotid arteries, unchanged. 3. No interval stenosis, occlusion, or aneurysm. 4. Fluid filled right sphenoid sinus which is new when compared with the prior study and may be associated with acute sinusitis. Dictated by: Jany Bach M.D. on 01/12/2017 at 22:00 Approved by: Jany Bach M.D. on 01/12/2017 at 22:10 Lab Results Interpretation Result Diagram: 01/12/17 1836 01/12/17 1836 Test 01/12/17 18:36 01/12/17 19:27 White Blood Count 6.7th/mm3 (3.8-10.1) Red Blood Count 4.31mil/mm3 (3.90-5.20) Hemoglobin 13.1g/dL (12.0-15.6) Hematocrit 37.8% (35.0-46.0) Mean Corpuscular Volume 87.7fL (81-100) Mean Corpuscular Hemoglobin 30.4pg (27.0-35.0) Mean Corpuscular Hemoglobin Concent 34.7% (32.0-37.0) Red Cell Distribution Width 12.8% (12.3-15.4) Platelet Count 337bil/L (150-400) Neutrophils (%) (Auto) 51.6% (40-74) Lymphocytes (%) (Auto) 37.0% (14-46) Monocytes (%) (Auto) 7.5% (4-12) Eosinophils (%) (Auto) 3.1% (0-5) Basophils (%) (Auto) 0.7% (0-3) Prothrombin Time 10.7sec (8.1-12.5) Prothromb Time International Ratio 1.00ratio Sodium Level 137mEq/L (134-144) Potassium Level 4.2mEq/L (3.5-5.2) Chloride Level 98mEq/L (97-108) Carbon Dioxide Level 18mmol/L (18-29) Blood Urea Nitrogen 47mg/dL (8-27) Creatinine 1.54mg/dL (0.57-1.00) Estimat Glomerular Filtration Rate 47mL/min (>59) Glucose Level 87mg/dL (60-99) Calcium Level 10.2mg/dL (8.5-10.1) Total Bilirubin 0.2mg/dL (0.0-1.2) Aspartate Amino Transf (AST/SGOT) 24U/L (0-50) Alanine Aminotransferase (ALT/SGPT) 24U/L (0-32) Alkaline Phosphatase 76U/L (25-165) Troponin T < 0.010ug/L (0.0-0.011) Total Protein 8.6g/dL (6.4-8.4) Albumin 4.8g/dL (3.4-5.0) Urine Color Yellow (YELLOW) Urine Appearance Clear (CLEAR,HAZY) Urine pH 6.0 (5.0-8.0) Urine Specific [place] 1.010 (1.003-1.035) Urine Protein 30mg/dL (NEG,TRACE) Urine Glucose (UA) Negativemg/dL (NEGATIVE) Urine Ketones Negativemg/dL (NEGATIVE) Urine Occult Blood Trace (NEGATIVE) Urine Nitrite Negative (NEGATIVE) Urine Bilirubin Negative (NEGATIVE) Urine Urobilinogen Normalmg/dL (NORMAL) Urine Leukocyte Esterase Small (NEGATIVE) Urine RBC 0-2/hpf (0-2) Urine WBC 6-10/hpf (0-5) Urine Epithelial Cells Many/hpf (NONE-MOD) Urine Crystals None seen (NONE SEEN) Urine Bacteria Few/hpf (NONE-FEW) Urine Hyaline Casts None/lpf (NONE) Urine Granular Casts None seen (NONE SEEN) Urine Waxy Casts None seen (NONE SEEN) Urine Red Blood Cell Casts None seen (NONE SEEN) Urine White Blood Cell Casts None seen (NONE SEEN) Urine Mucus None seen (None Seen) Urine Trichomonas None seen (NONE SEEN) Urine Yeast None (NONE SEEN) Urinalysis Comment None Urine Culture Reflexed Indicated ECG Interpretation ECG Interpretation: Sinus rhythm, rate 84 Nonspecific T abnormalities, lateral leads No STEMI Time: 18:24 Interpreted by: ED physician CT Head Interpretation IMPRESSION: 1. Stable appearance of the pontine infarct when compared with recent prior studies. 2. No new acute intracranial findings. No hemorrhagic transformation. 3. Moderate findings likely associated with chronic microvascular ischemic changes and old right frontal infarct. Dictated by: Jany Bach M.D. on 01/12/2017 at 18:56 Approved by: Jany Bach M.D. on 01/12/2017 at 19:00 Study: Head CT no contrast Interpretation / Wet Read by: Interpret - Radiologist Re-Eval/Medical Decision Med Decision/Clinical Course I consulted with neurology at [facility]. Recommendations are for MRI and if there is evidence of a new hemorrhagic insult then initiate anticoagulants. At admission time Giselle was back to her baseline and she looked and felt well. She will be admitted to the hospitalist service for the MRI and consider anticoagulation. Source of Hx: Old records Re-Evaluation/Progress #1: Time of Eval: 20:48 Re-Evaluation/Progress Note: Pt rechecked. Discussed the need for repeat CAT scan. Re-Evaluation/Progress #2: Time of Eval: 22:27 Re-Evaluation/Progress Note: Pt rechecked. Discussed plan for admission. Pt understands and agrees with plan. All questions addressed. Consultation #1: Referral / Consult Name: Jany Bach MD Call Returned at: 19:39 Driving Instructor: Agrees with eval, Agrees with plan Note: Discussed pt's case with radiologist, Dr. Bach. She recommends a liter of saline before going to CT. Consultation #2: Referral / Consult Name: Cy Suarez MD Consulted With: Hospitalist Call Returned at: 22:39 Driving Instructor: Will see patient, Agrees with plan, Accepts admit Note: Discussed pt's case with hospitalist, Dr. Suarez. He accepts admission. Counseled Regarding: Diagnosis, Lab results, Need for admission Discharge & Departure Impression: Primary Impression: Stroke CVA mechanism: unspecified Qualified Code: I63.9 - Cerebral infarction, unspecified Additional Impression: Vertebral artery dissection Disposition: ADMITTED TO HOSPITAL Discharge Condition All VS Reviewed: Yes Condition: Stable Referrals: Faustino French MD (PCP) Scribe Attestation Portions of this note were transcribed by Kelsey Haddad. I, Dr. Arango, personally performed the history, physical exam and medical decision-making; I reviewed and confirmed the accuracy of the information in the transcribed note. copies to: Faustino French MD, Todd P DO Jan 12, 2017 18:08 Kelsey Haddad Jan 12, 2017 18:20
[2017-01-12] MEDS ORDERED: Ondansetron 2 mg/mL 2 mL Inj IVPUSH PRN ×2 (18:20→23:45)
[2017-01-12] MEDS ORDERED: fentaNYL-PF 50 mCg/mL 2 mL Inj IVPUSH ONE (18:20)
[2017-01-12 18:41] LABS: BASOPHILS % (AUTO) 0.7 % (0-3); EOSINOPHILS % (AUTO) 3.1 % (0-5); MONOCYTES % (AUTO) 7.5 % (4-12); Mean Corpuscular Hemoglobin 30.4 pg (27.0-35.0); Mean Corpuscular Volume 87.7 fL (81-100); NEUTROPHILS % (AUTO) 51.6 % (40-74); Platelet Count 337 bil/L (150-400)
--- NOTE | 2017-01-12 19:02 | DRSVH ---
PROCEDURE: CT BRAIN WITHOUT CONTRAST ([id number]) INDICATIONS: headache, recent cva TECHNIQUE: Noncontrast 4.5 mm thick angled axial sections acquired from the foramen magnum to the vertex, with c oronal reformats. COMPARISON: [facility], MR, MR BRAIN W CON, 01/04/2017, 17:35. [facility], C T, CT BRAIN WO CON, 01/07/2017, 12:36. FINDINGS: Image quality: Excellent. CSF spaces: Basal cisterns are patent. No extra-axial fluid collections. The ventricles are symmet lavinia in size and shape. Brain: No intracranial bleeds or masses. There is moderate cerebral volume loss for age, with resul tant ventricular and sulcal prominence. There are moderate periventricular and deep white matter chr onic small vessel ischemic changes. Pontine infarct is redemonstrated similar in appearance to the s tudy dated 01/07/17. Old infarct is redemonstrated within the right frontal deep white matter. There i s intracranial internal carotid artery atherosclerosis. Skull and face: Calvarium and visualized facial bones appear intact, without suspicious lesions. Sinuses: Mucosal thickening is present within the right sphenoid sinus. Visualized sinuses and masto ids are otherwise clear. IMPRESSION: 1. Stable appearance of the pontine infarct when compared with recent prior studies. 2. No new acute intracranial findings. No hemorrhagic transformation. 3. Moderate findings likely associated with chronic microvascular ischemic changes and old right fron jerod infarct. Dictated by: Jany Bach M.D. on 01/12/2017 at 18:56 Approved by: Jany Bach M.D. on 01/12/2017 at 19:00
[2017-01-12 19:16] LABS: TROPONIN T < 0.010 ug/L (0.0-0.011)
[2017-01-12 19:20] VITALS: BP 141/67; PULSE 90; RESP 16; O2SAT 96
[2017-01-12] MEDS ORDERED: 0.9% Sodium Chloride 1,000 ML IV ONE (19:45)
[2017-01-12 19:46] LABS: APPEARANCE,URINE CLEAR (CLEAR,HAZY); COLOR,URINE YELLOW (YELLOW)
[2017-01-12 19:47] LABS: OCCULT BLOOD,URINE TRACE (NEGATIVE); UROBILINOGEN,URINE NORMAL (NORMAL)
--- NOTE | 2017-01-12 22:12 | DRSVH ---
PROCEDURE: CT ANGIO HEAD AND NECK (P) INDICATIONS: severe,headache and neck pain,blurred vision TECHNIQUE: Pre-contrast 4.5 mm thick sections acquired from the foramen magnum to the vertex. After the adminis tration of intravenous contrast, 1 mm thick sections acquired from the aortic arch through the [place] of [place]. Post-contrast 4.5 mm thick sections then re-acquired from the foramen magnum to the vert ex. 3-dimensional plaonuu-lozdwijry-zwephpwnek (MIP) and/or volume rendering reformats were acquired of the central intracranial vasculature and neck separately. For radiation dose reduction, the foll owing was used: automated exposure control, adjustment of mA and/or kV according to patient size. COMPARISON: [facility], CT, CT ANGIO BRAIN AND NECK, 01/04/2017, 21:11. FINDINGS: Image quality: Excellent. BRAIN: CSF spaces: Ventricles are normal in size and shape. Basal cisterns are patent. No extra-axial flu id collections. Brain: No midline shift. No intracranial bleeds or masses. Hernandes-white matter interface appears int act. There is a calcified pineal gland. Skull and face: Calvarium and facial bones appear intact, without suspicious lesions. Orbits appear normal. Sinuses: Sinuses and mastoids are clear. HEAD CT ANGIOGRAPHY: Anterior circulation: As before, there is moderate stenosis in the cavernous portions of the bilatera l internal carotid artery secondary to atheromatous calcification. The internal carotid arteries are otherwise normal in course and caliber. The flow within the paired anterior cerebral arteries is norm al and symmetric. The flow within the middle cerebral arteries is normal and symmetric. The anterio r communicating artery is seen. No aneurysms are seen. Posterior circulation: As before, there is a smooth tapered narrowing of the superior aspect of the r ight vertebral artery which becomes diminutive before the confluence with the left vertebral artery. The basilar artery is formed exclusively from the left vertebral artery. These findings are unchanged when compared with the study dated 01/04/17. No aneurysms are seen. NECK CT ANGIOGRAPHY: Carotid system: The great vessels demonstrate a conventional anatomy as they arise from the aortic a rch. The origins of the common carotid arteries appear patent. The common carotid arteries demonstr ate normal caliber and courses. The bifurcation regions are both widely patent. The internal caroti d arteries demonstrate normal calibers and courses. Posterior circulation: The origins of the vertebral arteries both appear widely patent. The more mejia perior extracranial portions of both vertebral arteries also demonstrate normal courses and calibers. They join to form a normal appearing basilar artery. Soft tissues: Visualized neck soft tissues demonstrate no suspicious abnormalities. There is new fl uid within the right sphenoid sinus and compared with the prior CT of the head. The visualized parana diana sinuses and mastoid air cells are otherwise clear. Bones: No suspicious bony lesions. Visualized cervical spine appears normally aligned. IMPRESSION: 1. Smooth tapered narrowing of the distal right vertebral artery unchanged from the study dated 7. 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 2. Moderate stenosis of the cavernous portions of the bilateral internal carotid arteries, unchanged. 3. No interval stenosis, occlusion, or aneurysm. 4. Fluid filled right sphenoid sinus which is new when compared with the prior study and may be assoc iated with acute sinusitis. Dictated by: Jany Bach M.D. on 01/12/2017 at 22:00 Approved by: Jany Bach M.D. on 01/12/2017 at 22:10
[2017-01-12 23:41] VITALS: BP 136/61; PULSE 83; RESP 16; O2SAT 96
[2017-01-12] MEDS ORDERED: Polyethylene Glycol (PEG) 17 Gm Powder PO PRN (23:45)
[2017-01-12] MEDS ORDERED: Alum-Mag Hydrox-Simeth 30 mL Suspension PO PRN (23:45)
--- NOTE | 2017-01-12 23:58 | PCM.HPMED ---
Subjective Date of Service Jan 12, 2017 Primary Provider: Admitting Physician: Cy Suarez MD Primary Care Physician: Faustino French MD Attending Physician: Cy Suarez MD Admit Status: From the Emergency Department Chief Complaint: Headache, recent stroke History of Present Illness: Giselle Kemp is a pleasant 76-year-old female with a past medical history significant for recent stroke on Plavix, hypertension, and type II diabetes mellitus insulin using who presented to the ED with a 1 day history of right posterior headache. She was recently admitted for a stroke on 01/04/2017 and was started on Plavix at that time. She reports that this headache is not due to a fall or trauma. It is exacerbated by movement. She reports some blurry vision in the right eye and dizziness but otherwise denies any unilateral weakness, slurring speech, facial droop, nausea/vomiting, neck pain. She has no history of atrial fibrillation. In the ED, another brain CT was performed and neurology at [facility] was consulted. They recommend admitting the patient with stroke workup and stat non -on brain CT if symptoms recur while in house; if no bleeding is present immediate blood thinning is to be done. Of note, she is allergic to heparin IV; reports no issues with subcutaneous injections. Review of Systems: Comprehensive review of systems was conducted with the patient and found to be negative except as noted above in HPI. Allergies Coded Allergies: Penicillins (Verified Allergy, Severe, Anaphylaxis, 01/12/17) Heparin Analogues (Verified Adverse Reaction, Intermediate, BURNING VEINS FROM IV, SUBQ IS OK, 01/12/17) BURNING VEINS FROM IV HEPARIN--SUB Q HEPARIN OK levofloxacin (Verified Adverse Reaction, Intermediate, INSTANT MIGRAINE, NIGHTMARES, 01/12/17) niacin (Verified Adverse Reaction, Intermediate, FLUSHING, NAUSEA, DIARRHEA, 01/12/17) Home Medications Scheduled Acetaminophen (Acetaminophen) 500 Mg Tablet 1,000 MG PO BID Amlodipine (Norvasc) 10 Mg Tablet 10 MG PO QAM Aspirin (Aspirin) 81 Mg Tablet 81 MG PO QAM Gemfibrozil (Gemfibrozil) 600 Mg Tablet 600 MG PO QAM Glipizide (Glipizide) 10 Mg Tablet 10 MG PO BIDWM Insulin Detemir (Levemir U100 Insulin Vial) 100 Unit/1 Ml Vial 18 UNIT SUBQ BID Levothyroxine (Levothyroxine) 112 Mcg Tablet 112 MCG PO QAM Lisinopril (Lisinopril) 40 Mg Tablet 60 MG PO QAM Metformin (Metformin) 500 Mg Tablet 500 MG PO EVERY OTHER DAY (PM) Metformin (Metformin) 500 Mg Tablet 500 MG PO QAM Metoprolol Tartrate (Metoprolol Tartrate) 25 Mg Tablet 12.5 MG PO BID Nortriptyline (Nortriptyline) 10 Mg Capsule 20 MG PO HS Omeprazole (Omeprazole) 20 Mg Capsule.dr 20 MG PO BIDWM Pravastatin (Pravastatin) 20 Mg Tablet 20 MG PO HS Triamterene/HCTZ 37.5-25 mg (Triamterene/HCTZ 37.5-25 mg) 1 Each Tablet 1 TABLET PO QAM Plavix 75mg PO DAILY PMH 1. Hypertension 2. Diabetes type 2. 3. Gastroesophageal reflux disease. 4. Hypothyroidism. 5. Dyslipidemia. 6. History of post ureteral stent complications with iliopsoas abscess and small-bowel obstruction, resolved with antibiotics. 7. History of hormone replacement therapy. 8. History of left-sided ureteral stones. 9. Arthritis of the neck, right shoulder, left shoulder and coccyx. 10. History of chronic calculus cholecystitis status post laparoscopic cholecystectomy and cholangiograms. 11. History of rectocele, vault prolapse, status post prior hysterectomy and prior anterior vaginal repair status post posterior Elevate system with posterior vaginal graft repair with apical vaginal repair and prophylactic mini-ARC urethropexy. 12. Migraines 13. Stroke 01/04/17 Surgical History Hysterectomy. Cholecystectomy. Kidney stones removal, stenting. History of left knee surgery. Family History CAD Social History Hx Alcohol Use: No Hx Substance Use: No Hx Tobacco Use: No Smoking Status: Never Smoker Exam Vital Signs Vital Sign - Last Date Time Temp Pulse Resp B/P Pulse Ox O2 Delivery O2 Flow Rate FiO2 01/12/17 23:41 83 16 136/61 96 Room Air 01/12/17 18:00 36.5 Exam General: Elderly female in no acute distress, well-developed, well-nourished, appropriately interactive HEENT: Normocephalic, atraumatic. External ears without defect. Pupils equal, round, and reactive to light and accommodation. Oropharynx free of erythema and cobble stoning with moist mucosa. Mild right sided facial droop (reported baseline). Neck: Supple with full range of motion. No jugular venous distension. No bruits. No lymphadenopathy or thyromegaly. Cardiovascular: Regular rate and rhythm with no murmurs, rubs, or gallops appreciated Pulmonary: Clear to auscultation bilaterally with no crackles, wheezes, or rhonchi. Normal respiratory effort with no use of accessory muscles. Abdomen: Bowel tones present. Soft, nontender, nondistended. No hepatosplenomegaly or masses appreciated. Extremities: No clubbing, cyanosis, edema, or lymphadenopathy appreciated. Skin: Normal temperature, turgor, and texture; no rash, ulcers, or subcutaneous nodules appreciated. Neurological: Cranial nerves grossly intact. Normal muscle strength, tone, and bulk. Reflexes, coordination, and sensory function within normal limits. Psychiatric: Normal mood and affect. Alert and oriented to person, place, and time. Lab and Diagnostics Result Diagram: 01/12/17183501/12/171835 Microbiology Urine culture, pending X-Rays, CTs and MRIs Brain CT 01/12/2017 IMPRESSION: 1. Stable appearance of the pontine infarct when compared with recent prior studies. 2. No new acute intracranial findings. No hemorrhagic transformation. 3. Moderate findings likely associated with chronic microvascular ischemic changes and old right frontal infarct. Dictated by: Jany Bach M.D. on 01/12/2017 at 18:56 Approved by: Jany Bach M.D. on 01/12/2017 at 19:00 CTA head and neck 01/12/17 IMPRESSION: 1. Smooth tapered narrowing of the distal right vertebral artery unchanged from the study dated 12/2516. 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 2. Moderate stenosis of the cavernous portions of the bilateral internal carotid arteries, unchanged. 3. No interval stenosis, occlusion, or aneurysm. 4. Fluid filled right sphenoid sinus which is new when compared with the prior study and may be associated with acute sinusitis. Dictated by: Jany Bach M.D. on 01/12/2017 at 22:00 Approved by: Jany Bach M.D. on 01/12/2017 at 22:10 12-lead ECG ECG Interpretation: Sinus rhythm, rate 84 Nonspecific T abnormalities, lateral leads No STEMI Time: 18:24 Interpreted by: ED physician Cardiac Echo Impressions Echocardiogram in 01/05/17 Interpretation Summary 1) Normal ventricular thickness, size, wall motion, and systolic function (EF 60-65%). 2) Normal right ventricular size and function. 3) Injection of contrast documented no interatrial shunt. 4) Mild pulmonary artery dilation (diameter 3.5cm). This was not well visualized on the last echo. 5) Pulmonary artery pressures cannot be estimated because of the lack of a measurable TR jet velocity. 6) Compared to the echo done 01/15/2011, no significant change. Assessment & Plan Giselle Kemp is a pleasant 76-year-old female with a past medical history significant for recent stroke on Plavix, hypertension, and type II diabetes mellitus insulin using who presented to the ED with a 1 day history of right posterior headache after having a stroke on 01/04/17. Headache s/p recent stroke 01/04/17, present on admission. Acute. Ongoing. - Pt had brain stem stroke with right sided effects that resolved; was transferred to [facility] 01/08/17 - Noncon brain CT 01/12/17 shows no acute process - CTA head/neck suspicious for vertebral artery dissection as before, could be the cause of her headache as it is posterior and worse with movement - [facility] neurology consulted from ED, recommend the following: Admit patient for stroke work up (MRI stroke protocol in AM, swallow screen, neuro checks, etc.) Any signs/symptoms of recurrent event --> Noncon brain CT If noncon brain CT shows no bleed --> anticoagulate immediately (avoid heparin due to allergic response) - Continue Plavix 75mg daily Acute Kidney Injury, present on admission. Acute. Ongoing. - likely due to recent contrast studies - Pt was discharged with Cr of 0.9; is 1.54 on admission - NS at 100ml/hr; she received 1L in the ED prior to her CTA - Consider another 1L bolus prior to MRI in morning - Minimize further nephrotoxic insult (difficult in stroke setting) Diabetes type 2 insulin using, present on admission. Chronic. - Continue detemir 18 units twice daily - Holding metformin, glipizide while hospitalized - Diabetic Diet ordered after swallow screen - A1C 01/04 was 9.2 - Low-dose correctional scale ordered Hypertension, present on admission. Chronic. - Continue metoprolol tartrate 12.5 mg twice daily - Continue amlodipine 10 mg daily - She was on Lisinopril 60mg and Triamterene/HCTZ 37.5-25mg daily; day team to obtain records from recent [facility] Hospitalization to assess accurate med req Hyperlipidemia, present on admission. Chronic. - Continue pravastatin 20 mg at night - Continue gemfibrozil 600 mg daily Gastroesophageal reflux disease, present on admission. Chronic. - Continue omeprazole 20 mg twice daily Hypothyroidism., present on admission. Chronic. -Continue levothyroxine 112 mcg daily PRN Medications - Acetaminophen as needed for mild pain/fever/headache - Bowel regimen as needed - Antiemetic as needed Patient status: Patient is admitted under observation status with expected length of stay less than 2 midnights due to severity of presenting symptoms, risk of adverse event, and complexity of treatment plan. VTE Prophylaxis: Sub-Q Enoxaparin VTE Mechanical Devices: Intermittant Pneumatic CD Resuscitation Status: CPR: Attempt Resuscitation Attending Statement The patient was seen and examined together with Dr. Hu on 01/12 and I agree with the history, exam and plan as outlined in the note above. Derian Hu DO Jan 12, 2017 23:58 Cy Suarez MD Jan 13, 2017 01:34
[2017-01-13] VITALS (7 sets, daily range): BP systolic 112–134; BP diastolic 59–76; PULSE 74–84; RESP 16–18; O2SAT 95–98
[2017-01-13] MEDS ORDERED: Glucose 40% Oral Gel 15 Gm Tube PO PRN (00:15)
[2017-01-13] MEDS ORDERED: 0.9% Sodium Chloride 1,000 ML IV SCH (00:15)
[2017-01-13] MEDS: Sodium Chloride LOK Flush 10 mL Syringe IVFLUSH SCH ×2 (00:30→08:19)
[2017-01-13] MEDS ORDERED: Dextrose 10% 250 ML IV PRN (00:35)
--- NOTE | 2017-01-13 01:46 | NUR ---
admit note: pt. admitted for headache back of head, dizziness, visual changes, pt. had recent CVA dc'd january 08, bp stable, heart rate 80 SR, pt. 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
[2017-01-13] MEDS: Insulin LISPRO 300 Unit/3 mL Inj SUBQ SCH ×2 (08:00→12:42)
[2017-01-13] MEDS ORDERED: Pantoprazole 20 mg ER24 Tablet PO SCH (08:00)
[2017-01-13] MEDS ORDERED: Insulin GLARgine 100 Unit/mL Syringe SUBQ SCH (08:30)
--- NOTE | 2017-01-13 10:56 | DRSVH ---
PROCEDURE: MRI BRAIN WITHOUT CONTRAST ([id number]) INDICATIONS: recent stroke/TIA sx TECHNIQUE: Non-contrast axial T1 spin echo, axial T2 fast spin echo, sagittal and axial FLAIR, coronal T2 fast s pin echo, axial gradient echo, axial diffusion and ADC through the brain. COMPARISON: Located Within [facility], CT, CT ANGIO BRAIN AND NECK, 01/12/2017, 20:59. [facility], CT, CT BRAIN WO CON, 01/12/2017, 18:43. Located Within [facility], CT, CT BRAIN WO CON, 7, 12:36. Located Within [facility], CT, CT ANGIO BRAIN AND NECK, 01/04/2017, 21:11. [facility] ital, MR, MR BRAIN W CON, 01/04/2017, 17:35. Located Within [facility], MR, MR ANGIO NECK W CON, 01/05/20 17, 17:35. Located Within [facility], MR, MR ANGIO HEAD WO CON, 01/04/2017, 11:17. [facility], CT, CT BRAIN WO CON, 01/03/2017, 15:35. Located Within [facility], CT, CT BRAIN WO CON, 04/22/2015, 3:55. FINDINGS: Image quality: Excellent. CSF spaces: Ventricles appear symmetric in size and shape. Basal cisterns are patent. No extra-axi al fluid collections. Brain: No intracranial bleeds or mass effects. There is cerebral volume loss for age. There are pe riventricular and deep white matter chronic small vessel ischemic changes. Brainstem appears normal. Diffusion-weighted images show hyperintensity within the addy with relative hypointensity on ADC an d hyperintensity on T2/FLAIR sequences.. No chronic ischemic insults. Normal intravascular flow voi ds are present. Flow-voids of the narrowing of the distal right vertebral artery as well as moderate stenosis of the cavernous portions of the internal carotid arteries are noted, although better appreciated on CTA exa mination of 01/12/17. Skull and face: Calvarial bone marrow is normal in signal. Orbits are normal. Sinuses: Sinuses demonstrate fluid in the right sphenoid sinus. IMPRESSION: 1. Acute to subacute ischemia within the addy as described above without superimposed hemorrhage. 2. Moderate atrophy and chronic microvascular ischemic changes. 3. Narrowing of the distal right vertebral artery as well as moderate stenosis of the cavernous inter nal carotid arteries as above. Dictated by: Bisi Lopez M.D. on 01/13/2017 at 10:44 Approved by: Bisi Lopez M.D. on 01/13/2017 at 10:54
--- NOTE | 2017-01-13 11:38 | NUR ---
Social Work: Initial Assessment/Multidisciplinary Rounds Data: Per EMR review, Pt is a 76 y/o female who was admitted for CVA. Pt is a readmit and was also admitted on 01/03/19 for CVA. Pt's insurance is [employer] and [employer] with no LTC or VA benefits. PCP is Faustino French MD. NOK/DPOA is Ely Jimenes dtr. No RA score entered at this time. PHOTOENGRAVING ETCHER met with patient and daughter Noemi [phone] at bedside at bedside. tear down worker role explained, contact information and discharge planning checklist provided. See initial assessment. After last admission at [facility] patient has been staying with her daughter, Ely for additional support. She has been using a FWW but states she has been feeling a lot stronger. They are being setup with [facility] but have not yet had their first visit. This is their preference. Pt has never require skilled rehab and does not drive. Pt and daughter both express that they have no concerns with the patient discharging back to stay with family until she is able to return to her apartment. Pt discussed in Multidisciplinary rounds. Capacity for self care discussed; pt is open with [facility]. order to coordinate resumption of care has been requested. PHOTOENGRAVING ETCHER received a voicemail from Alysia Carranza with [facility]; they have everything they need to start services and just need resumption of care orders at discharge. Assessment:pt who is living with her daughter for extra support until able to return home Plan: Anticipate pt to discharge home with her daughters and resumed [facility] pending orders from providers. PHOTOENGRAVING ETCHER to continue to follow to assess for unmet discharge needs. VIK Hogan Addendum: 01/13/17 at 1152 by LISA ROSE Amended: Links added.
--- NOTE | 2017-01-13 13:23 | PCM.DIMED ---
Discharge Instructions Date of Service Jan 13, 2017 Dates of Hospitalization Jan 12, 2017 at 23:20 Discharge Diagnosis Discharge Diagnosis Headache, status post ischemic stroke coupons January 04. With residual right sided facial droop and right arm dysmetria Diet Discharge Diet: Heart Healthy Activity Discharge Activity: Other (as tolerated) Call your provider Call your provider for: Fever or Chills, Shortness of breath, Bleeding, Chest pain, Vomitting, Excessive diarrhea, Weakness (unilateral) Patient Instructions Follow-up plan Follow-up with your primary care provider is listed below Dr. French. Also follow up with neurology at [facility] as already scheduled January 29. Follow-up Provider: Faustino French MD Follow-up with PCP in: Other (in 2-3 days sooner if problems) Additional Information Continue with Plavix. Hold metformin Macey with metoprolol and amlodipine. Continue with Pravachol and gemfibrozil. Laura Mcclure MD Jan 13, 2017 13:23
[2017-01-13] MEDS ORDERED: CLOP75TA28 PO (13:25)
--- NOTE | 2017-01-13 13:35 | PCM.DC.MED ---
Discharge Summary Date of Service Jan 13, 2017 Dates of Hospitalization Date of Hospital Admission Jan 12, 2017 at 23:20 Date of Discharge: Jan 13, 2017 Providers: Admitting Physician: Cy Suarez MD Primary Care Physician: Faustino French MD Attending Physician: Laura Mcclure MD Diagnosis at Time of Discharge Diagnosis at Time of Discharge Headache, status post ischemic stroke coupons January 04. With residual right sided facial droop and right arm dysmetria Consultations [facility] neurology telestroke center Procedures XRay, CTs & MRIs Brain CT 01/12/2017 IMPRESSION: 1. Stable appearance of the pontine infarct when compared with recent prior studies. 2. No new acute intracranial findings. No hemorrhagic transformation. 3. Moderate findings likely associated with chronic microvascular ischemic changes and old right frontal infarct. Dictated by: Jany Bach M.D. on 01/12/2017 at 18:56 Approved by: Jany Bach M.D. on 01/12/2017 at 19:00 CTA head and neck 01/12/17 IMPRESSION: 1. Smooth tapered narrowing of the distal right vertebral artery unchanged from the study dated . 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 2. Moderate stenosis of the cavernous portions of the bilateral internal carotid arteries, unchanged. 3. No interval stenosis, occlusion, or aneurysm. 4. Fluid filled right sphenoid sinus which is new when compared with the prior study and may be associated with acute sinusitis. Dictated by: Jany Bach M.D. on 01/12/2017 at 22:00 Approved by: Jany Bach M.D. on 01/12/2017 at 22:10 PROCEDURE: MRI BRAIN WITHOUT CONTRAST ([id number]) INDICATIONS: recent stroke/TIA sx TECHNIQUE: Non-contrast axial T1 spin echo, axial T2 fast spin echo, sagittal and axial FLAIR, coronal T2 fast spin echo, axial gradient echo, axial diffusion and ADC through the brain. COMPARISON: [facility], CT, CT ANGIO BRAIN AND NECK, 01/12/2017, 20: 59. [facility], CT, CT BRAIN WO CON, 01/12/2017, 18:43. [facility], CT, CT BRAIN WO CON, 01/07/2017, 12:36. [facility] , CT, CT ANGIO BRAIN AND NECK, 01/04/2017, 21:11. [facility], MR, MR BRAIN W CON, 01/04/2017, 17:35. [facility], MR, MR ANGIO NECK W CON, 01/04/2017, 17:35. [facility], MR, MR ANGIO HEAD WO CON, 2016, 11:17. [facility], CT, CT BRAIN WO CON, 01/03/2017, 15:35. [facility], CT, CT BRAIN WO CON, 04/22/2015, 3:55. FINDINGS: Image quality: Excellent. CSF spaces: Ventricles appear symmetric in size and shape. Basal cisterns are patent. No extra-axial fluid collections. Brain: No intracranial bleeds or mass effects. There is cerebral volume loss for age. There are periventricular and deep white matter chronic small vessel ischemic changes. Brainstem appears normal. Diffusion-weighted images show hyperintensity within the addy with relative hypointensity on ADC and hyperintensity on T2/FLAIR sequences.. No chronic ischemic insults. Normal intravascular flow voids are present. Flow-voids of the narrowing of the distal right vertebral artery as well as moderate stenosis of the cavernous portions of the internal carotid arteries are noted, although better appreciated on CTA examination of 01/12/17. Skull and face: Calvarial bone marrow is normal in signal. Orbits are normal. Sinuses: Sinuses demonstrate fluid in the right sphenoid sinus. IMPRESSION: 1. Acute to subacute ischemia within the addy as described above without superimposed hemorrhage. 2. Moderate atrophy and chronic microvascular ischemic changes. 3. Narrowing of the distal right vertebral artery as well as moderate stenosis of the cavernous internal carotid arteries as above. Dictated by: Bisi Lopez M.D. on 01/13/2017 at 10:44 Approved by: Bisi Lopez M.D. on 01/13/2017 at 10:54 ECG 12 Lead ECG Interpretation: Sinus rhythm, rate 84 Nonspecific T abnormalities, lateral leads No STEMI Time: 18:24 Interpreted by: ED physician Cardiac Echo Impression Echocardiogram in 01/05/17 Interpretation Summary 1) Normal ventricular thickness, size, wall motion, and systolic function (EF 60-65%). 2) Normal right ventricular size and function. 3) Injection of contrast documented no interatrial shunt. 4) Mild pulmonary artery dilation (diameter 3.5cm). This was not well visualized on the last echo. 5) Pulmonary artery pressures cannot be estimated because of the lack of a measurable TR jet velocity. 6) Compared to the echo done 01/15/2011, no significant change. Brief History Giselle Kemp is a pleasant 76-year-old female with a past medical history significant for recent stroke on Plavix, hypertension, and type II diabetes mellitus insulin using who presented to the ED with a 1 day history of right posterior headache. She was recently admitted for a stroke on 01/04/2017 and was started on Plavix at that time. She reports that this headache is not due to a fall or trauma. It is exacerbated by movement. She reports some blurry vision in the right eye and dizziness but otherwise denies any unilateral weakness, slurring speech, facial droop, nausea/vomiting, neck pain. She has no history of atrial fibrillation. In the ED, another brain CT was performed and neurology at [facility] was consulted. They recommend admitting the patient with stroke workup and stat non -on brain CT if symptoms recur while in house; if no bleeding is present immediate blood thinning is to be done. Of note, she is allergic to heparin IV; reports no issues with subcutaneous injections. Hospital Course Giselle Kemp is a pleasant 76-year-old female with a past medical history significant for recent stroke on Plavix, hypertension, and type II diabetes mellitus insulin using who presented to the ED with a 1 day history of right posterior headache after having a stroke on 01/04/17. Headache s/p recent stroke 01/04/17, present on admission. Acute. Ongoing. - Pt had brain stem stroke with right sided effects that resolved; was transferred to [facility] 01/08/17 - Noncon brain CT 01/12/17 shows no acute process - CTA head/neck suspicious for vertebral artery dissection as before, could be the cause of her headache as it is posterior and worse with movement - [facility] neurology consulted from ED, recommend the following: Admit patient for stroke work up (MRI stroke protocol in AM, swallow screen, neuro checks, etc.) Any signs/symptoms of recurrent event --> Noncon brain CT If noncon brain CT shows no bleed --> anticoagulate immediately (avoid heparin due to allergic response) - Continue Plavix 75mg daily -I called [facility] telemetry stroke neurology, Dr. Lisa Bangura, for follow-up today after MRI results came back and they recommended continuing with Plavix and no further interventions. They are aware of these questionable findings of the vertebral artery and are pursuing outpatient workup for this and follow-up with [facility] neurology consult January 29. Acute Kidney Injury, present on admission. Acute. Ongoing. - likely due to recent contrast studies - Pt was discharged with Cr of 0.9; is 1.54 on admission - NS at 100ml/hr; she received 1L in the ED prior to her CTA - Consider another 1L bolus prior to MRI in morning - Minimize further nephrotoxic insult (difficult in stroke setting) so will hold metformin lisinopril and Dyazide. Which appears the latter 2 patient was not taking after discharge from [facility]. -BMP was obtained prior to discharge but results are pending at the time of this dictation. Follow-up this is recommended by primary care provider at follow-up visit. Diabetes type 2 insulin using, present on admission. Chronic. - Continue detemir 18 units twice daily - Holding metformin, glipizide while hospitalized - Diabetic Diet ordered after swallow screen - A1C 01/04 was 9.2 - Low-dose correctional scale ordered -Hold metformin for now given recent IV contrast dye Hypertension, present on admission. Chronic. - Continue metoprolol tartrate 12.5 mg twice daily - Continue amlodipine 10 mg daily - She was on Lisinopril 60mg and Triamterene/HCTZ 37.5-25mg daily; day team to obtain records from recent [facility] Hospitalization to assess accurate med req Hyperlipidemia, present on admission. Chronic. - Continue pravastatin 20 mg at night - Continue gemfibrozil 600 mg daily Gastroesophageal reflux disease, present on admission. Chronic. - Continue omeprazole 20 mg twice daily Hypothyroidism., present on admission. Chronic. -Continue levothyroxine 112 mcg daily PRN Medications - Acetaminophen as needed for mild pain/fever/headache - Bowel regimen as needed - Antiemetic as needed Exam Vital Signs (Last) Date Time Temp Pulse Resp B/P Pulse Ox O2 Delivery O2 Flow Rate FiO2 01/13/17 11:44 36.9 82 18 112/59 95 Room Air Exam Constitutional: Elderly female in no acute distress Head: Normocephalic atraumatic with slight residual right facial droop Mouth: No lesions Neck: No adenopathy Chest: Clear to auscultation Cor: Regular rate and rhythm S1-S2 without murmur Abdomen: Nontender bowel sounds present Extremities: No pedal edema Neuro: Alert and oriented 3, motor strength except for slight right facial droop is intact Psych: Mood and affect are appropriate Skin: No rashes Test 01/12/17 18:36 01/12/17 19:27 01/13/17 13:10 White Blood Count 6.7th/mm3 (3.8-10.1) Red Blood Count 4.31mil/mm3 (3.90-5.20) Hemoglobin 13.1g/dL (12.0-15.6) Hematocrit 37.8% (35.0-46.0) Mean Corpuscular Volume 87.7fL (81-100) Mean Corpuscular Hemoglobin 30.4pg (27.0-35.0) Mean Corpuscular Hemoglobin Concent 34.7% (32.0-37.0) Red Cell Distribution Width 12.8% (12.3-15.4) Platelet Count 337bil/L (150-400) Neutrophils (%) (Auto) 51.6% (40-74) Lymphocytes (%) (Auto) 37.0% (14-46) Monocytes (%) (Auto) 7.5% (4-12) Eosinophils (%) (Auto) 3.1% (0-5) Basophils (%) (Auto) 0.7% (0-3) Prothrombin Time 10.7sec (8.1-12.5) Prothromb Time International Ratio 1.00ratio Total Bilirubin 0.2mg/dL (0.0-1.2) Aspartate Amino Transf (AST/SGOT) 24U/L (0-50) Alanine Aminotransferase (ALT/SGPT) 24U/L (0-32) Alkaline Phosphatase 76U/L (25-165) Troponin T < 0.010ug/L (0.0-0.011) Total Protein 8.6g/dL (6.4-8.4) Albumin 4.8g/dL (3.4-5.0) Urine Color Yellow (YELLOW) Urine Appearance Clear (CLEAR,HAZY) Urine pH 6.0 (5.0-8.0) Urine Specific Burns 1.010 (1.003-1.035) Urine Protein 30mg/dL (NEG,TRACE) Urine Glucose (UA) Negativemg/dL (NEGATIVE) Urine Ketones Negativemg/dL (NEGATIVE) Urine Occult Blood Trace (NEGATIVE) Urine Nitrite Negative (NEGATIVE) Urine Bilirubin Negative (NEGATIVE) Urine Urobilinogen Normalmg/dL (NORMAL) Urine Leukocyte Esterase Small (NEGATIVE) Urine RBC 0-2/hpf (0-2) Urine WBC 6-10/hpf (0-5) Urine Epithelial Cells Many/hpf (NONE-MOD) Urine Crystals None seen (NONE SEEN) Urine Bacteria Few/hpf (NONE-FEW) Urine Hyaline Casts None/lpf (NONE) Urine Granular Casts None seen (NONE SEEN) Urine Waxy Casts None seen (NONE SEEN) Urine Red Blood Cell Casts None seen (NONE SEEN) Urine White Blood Cell Casts None seen (NONE SEEN) Urine Mucus None seen (None Seen) Urine Trichomonas None seen (NONE SEEN) Urine Yeast None (NONE SEEN) Urinalysis Comment None Urine Culture Reflexed Indicated Microbiology Results Urine culture, pending Discharge Medications Discharge Medications Acetaminophen (Acetaminophen) 500 Mg Tablet 1,000 MG PO BID (Reported) Amlodipine (Norvasc) 10 Mg Tablet 10 MG PO QAM (Reported) Clopidogrel (Clopidogrel) 75 Mg Tablet 75 MG PO DAILY Prescribed by: LAURA MCCLURE MD Gemfibrozil (Gemfibrozil) 600 Mg Tablet 600 MG PO QAM (Reported) Insulin Detemir (Levemir U100 Insulin Vial) 100 Unit/1 Ml Vial 18 UNIT SUBQ BID (Reported) Levothyroxine (Levothyroxine) 112 Mcg Tablet 112 MCG PO QAM (Reported) Metoprolol Tartrate (Metoprolol Tartrate) 25 Mg Tablet 12.5 MG PO BID (Reported ) Nortriptyline (Nortriptyline) 10 Mg Capsule 20 MG PO HS (Reported) Omeprazole (Omeprazole) 20 Mg Capsule.dr 20 MG PO BIDWM (Reported) Pravastatin (Pravastatin) 20 Mg Tablet 20 MG PO HS (Reported) Followup Plan Follow-up plan Follow-up with your primary care provider is listed below Dr. French. Also follow up with neurology at [facility] as already scheduled January 29. Discharge Diet: Heart Healthy Discharge Activity: Other (as tolerated) Follow-up Provider: Faustino French MD Follow-up with PCP in: Other (in 2-3 days sooner if problems) Time spent 60 minutes copies to: Faustino French MD, Cheryl A MD Jan 13, 2017 13:35
--- NOTE | 2017-01-13 13:58 | NUR ---
Discharge Pt was provided education packet and has a copy of the stroke booklet. All information was gone over with patient. Telemetry leads were removed. IV was removed. Pt and family demonstrated understanding of teaching. Pt and RN both signed discharge sheet. Pt left with all personal belongings and was escorted down to vehicle by a staff member.
--- NOTE | 2017-01-13 16:29 | NUR ---
Late Entry Case Management: Attempted to deliver [facility] to patient at 1525 but patient had already been discharged. Divina Guevara RN
== END 2017-01-13 14:17 | disposition home or self-care (01) ==
LOC: SED 17:38 → INTOOBSV 23:20 → PCC 23:20
PROVIDERS: ADMIT Hospitalist; ATTEND Specialist
DX: R51 Headache (principal); I69.392 Facial weakness following cerebral infarction; R27.8 Other lack of coordination; I10 Essential (primary) hypertension; E11.9 Type 2 diabetes mellitus without complications; N17.9 Acute kidney failure, unspecified; E78.5 Hyperlipidemia, unspecified; K21.9 Gastro-esophageal reflux disease without esophagitis; E03.9 Hypothyroidism, unspecified; M13.89 Other specified arthritis, multiple sites; Z79.02 Long term (current) use of antithrombotics/antiplatelets; Z79.890 Hormone replacement therapy; Z79.4 Long term (current) use of insulin; Z79.84 Long term (current) use of oral hypoglycemic drugs
CPT/HCPCS: 36415; 70450; 70496; 70498; 70551; 80048; 80053; 81000; 84484; 85025; 85610; 87086; 87088; 93005; 96361; 96374; 96375; 99285; G0378; J1650; J1815; J2060; J2405; J3010; J7030; Q9967